=== PATIENT | male | born 1950 | race Caucasian/White ===

== ENCOUNTER → 2017-02-24 | Outpatient (CLI) | payer MEDICARE, OTHER ==
[~2017-02-24] MED LIST: AMIT50TA3 PO; AMLO5TAB66 PO; ASCO100T10 PO; COLC0.6T54 PO; DICL100G5 TOP; DOXY100T2 PO; HYDR-2164 PO; HYDR1TAB82 PO; HYDR25TA85 PO; LIDOCAINE 1% (10mg/ml) 30ml SDV ONE; LISI-126 PO; MINO100T PO; MIRT15TA7 PO; MethylPREDNISolone ACETATE 80mg/1ml ONE; OMEP40CA11 PO; POTA20TA68 PO; PREN1TAB46 PO; SUCR1TAB PO; TADA20TA; VITA1CAP29 PO; [UNRECOGNIZED DRUG - CODE] PO
--- NOTE | 2017-02-24 08:14 | PDPROCED ---
Procedure DATE OF PROCEDURE 02/24/17 PREPROCEDURE DIAGNOSIS Bilateral hip pain. POSTPROCEDURE DIAGNOSIS Bilateral hip pain. PROCEDURE Intraarticular injection of right and left hips with Depo-Medrol. SURGEON Tanika Culver MD COMPLICATIONS None. ANESTHESIA Local. INDICATIONS Please see office notes. DESCRIPTION OF PROCEDURE The patient and the right hip were identified. The patient was placed on the fluoroscopy table and the right anterior hip was prepped and draped in normal sterile fashion. Ethyl Chloride spray was used to anesthetize the skin and a 25 gauge needle was used to inject 1% lidocaine at the anterior lateral thigh. This needle was then removed and a spinal needle was introduced into the same path and again lidocaine was used to anesthetize the path down to the hip joint. Confirmation that the needle was within the capsule of the hip joint was done by placing 1 cc of Omnipaque dye under fluoroscopic imaging until the capsule lines appeared on fluoroscopy confirming that the needle was intraarticular. 160 mg of Depo-Medrol was then injected in to the hip joint. The needle was removed. The site was then cleaned with alcohol and a Band-aid was placed. The same procedure was then repeated on the left side. The patient tolerated the procedure well. FOLLOW UP 3-4 weeks or sooner with any problems or concerns. JEREMIAS CULVER MD Feb 24, 2017 08:14
== END ==
LOC: CATH.INJ 07:38
PROVIDERS: ATTEND Orthopaedic Surgery
DX: M16.0 Bilateral primary osteoarthritis of hip (principal)
CPT/HCPCS: 20610; 77002; J1040; Q9967

== ENCOUNTER → 2017-03-03 | Outpatient (CLI) | payer MEDICARE, OTHER ==
[~2017-03-03] MED LIST changes: +GADOBUTROL 10mMol/10ml INJECTION IV ONE; -LIDOCAINE 1% (10mg/ml) 30ml SDV ONE; -MethylPREDNISolone ACETATE 80mg/1ml ONE; +SALINE FLUSH 10ml SYRINGE ONE
== END ==
LOC: IMA 08:21
PROVIDERS: ATTEND Family Medicine Sports Medicine
DX: Z53.8 Procedure and treatment not carried out for other reasons (principal)

== ENCOUNTER → 2017-03-03 | Outpatient (CLI) | payer MEDICARE, OTHER ==
[~2017-03-03] MED LIST changes: -GADOBUTROL 10mMol/10ml INJECTION IV ONE; +IOHEXOL 300 MG/ML 100ml INJECTION ONE; +NORMAL SALINE 100 ML ONE
--- NOTE | 2017-03-03 18:20 | DI ---
Indication: ITS.REASON: C34.11 RIGHT LUNG CA PROCEDURE: CT CHEST/ABD/PELVIS WITH CONTRAST. Comparison: None Technique: Axial CT images were performed through the chest, abdomen and pelvis after the administration of intravenous contrast. Coronal and sagittal two-dimensional reformats. Automated Exposure Control and Iterative Reconstruction dose reducing techniques were utilized. CT CHEST FINDINGS: Cardiovascular: The heart is mild to moderately enlarged. There is mild calcific atherosclerotic disease of the thoracic aorta and coronary arteries. Lymph nodes: There are no enlarged axillary, hilar, or mediastinal lymph nodes. Lungs: Stable right posterior perihilar postsurgically/post therapeutic related fibrosis/scarring without evidence for developing mass. The lungs are otherwise clear. Resolution of trace right pleural effusion. There is no pneumothorax. Bones: No suspicious or destructive osseous lesions. Mild spondylosis of the thoracic spine. IMPRESSION: Post surgical related scarring/fibrosis about the right perihilar region without evidence for developing pulmonary mass or thoracic tom metastases. CT ABDOMEN AND PELVIS FINDINGS: CT ABDOMEN LIVER: There is diffuse fatty infiltration of the liver SPLEEN: Unremarkable. GALLBLADDER: Unremarkable. PANCREAS: Unremarkable. ADRENAL GLANDS: Unremarkable. KIDNEYS: Unremarkable. AORTA: Mild calcific atherosclerotic disease. LYMPH NODES: Unremarkable. STOMACH BOWEL LOOPS: There is moderate constipation. No evidence for bowel obstruction. PERITONEAL CAVITY: There is no abdominal or pelvic inflammatory mass or ascites. CT PELVIS URINARY BLADDER: Unremarkable. PELVIC VISCERA: Postsurgical changes of prostatectomy. No evidence for residual recurrent malignancy. OSSEOUS STRUCTURES: Postsurgical changes in the lumbar spine with laminectomy defects. No suspicious or destructive osseous lesions are demonstrated. IMPRESSION: 1. Postsurgical changes of prostatectomy without evidence for residual or recurrent mass. No evidence for thoracic, abdominal, or pelvic tom metastases. No evidence for pulmonary or abdominal/pelvic visceral metastases. 2. Resolution of small right pleural effusion. Unchanged right perihilar and apical scarring/atelectasis without evidence for developing pulmonary mass. .
== END ==
LOC: IMA 08:24
PROVIDERS: ATTEND Internal Medicine Medical Oncology
DX: C34.11 Malignant neoplasm of upper lobe, right bronchus or lung (principal); I25.10 Atherosclerotic heart disease of native coronary artery without angina pectoris; I70.0 Atherosclerosis of aorta; J98.11 Atelectasis; M47.814 Spondylosis without myelopathy or radiculopathy, thoracic region; Z98.890 Other specified postprocedural states; Z90.79 Acquired absence of other genital organ(s)
CPT/HCPCS: 71260; 74177; J7050; Q9967

== ENCOUNTER → 2017-03-12 | Outpatient (CLI) | payer MEDICARE, OTHER ==
[~2017-03-12] MED LIST changes: +IOHEXOL 180 MG/ML 20ml INJECTION ONE; -IOHEXOL 300 MG/ML 100ml INJECTION ONE; +LIDOCAINE 1% (10mg/ml) 5ml VIAL ONE; +MethylPREDNISolone ACETATE 40mg/1ml ONE; -NORMAL SALINE 100 ML ONE; -SALINE FLUSH 10ml SYRINGE ONE
--- NOTE | 2017-03-12 14:58 | DI ---
Indication:ITS.REASON: M54.16 RADICULOPATHY; M48.06 STENOSIS Procedure:EPIDURAL INJ.SPINE W FLUO CATH LUMBAR EPIDURAL INJECTION: The patient has low back and radicular pain. The patient has not had any previous epidurals. The details of the procedure, including the benefits, risks, and alternatives were explained to the patient. All of their questions were answered. They stated that they understood and wished to proceed. Informed consent was then obtained. A pre-procedural timeout was performed to confirm the correct patient and procedure. Utilizing aseptic technique, local lidocaine anesthetic, and fluoroscopic guidance throughout, a 22-gauge spinal needle was directed into the lumbar epidural space via a sacrococcygeal approach. Contrast was injected to assure proper positioning of the needle tip. A fluoroscopic image was then taken and archived. Subsequently, 120 mg Depo-Medrol was injected into the epidural space. The patient tolerated the procedure well. IMPRESSION: Successful lumbar epidural steroid injection. Fluoroscopy dose: 32.58 mGy (Cumulative air kerma) Willy Marquez RPA/STACIA performed this under my personal supervision. .
== END ==
LOC: IMA 13:55
PROVIDERS: ATTEND Family Medicine Sports Medicine
DX: M54.16 Radiculopathy, lumbar region (principal); M48.06 Spinal stenosis, lumbar region
CPT/HCPCS: 62323; J1030; Q9965

== ENCOUNTER → 2017-04-02 | Outpatient (CLI) | payer MEDICARE, OTHER ==
--- NOTE | 2017-04-02 10:57 | DI ---
Indication:ITS.REASON: M54.16 RADICULOPATHY, LUMBAR REGION; M48.06 Procedure:EPIDURAL INJ.SPINE W FLUO CATH LUMBAR EPIDURAL INJECTION: The patient has low back and radicular pain. The previous epidural did not provide significant relief for the patient. The details of the procedure, including the benefits, risks, and alternatives were explained to the patient. All of their questions were answered. They stated that they understood and wished to proceed. Informed consent was then obtained. A pre-procedural timeout was performed to confirm the correct patient and procedure. Utilizing aseptic technique, local lidocaine anesthetic, and fluoroscopic guidance throughout, a 22-gauge spinal needle was directed into the lumbar epidural space via a sacrococcygeal approach. Contrast was injected to assure proper positioning of the needle tip. A fluoroscopic image was then taken and archived. Subsequently, 120 mg Depo-Medrol was injected into the epidural space. The patient tolerated the procedure well. IMPRESSION: Successful lumbar epidural steroid injection. Fluoroscopy dose: 36.35 mGy (Cumulative air kerma) Willy Marquez RPA/STACIA performed this under my personal supervision. .
== END ==
LOC: IMA 08:55
PROVIDERS: ATTEND Family Medicine Sports Medicine
DX: M54.16 Radiculopathy, lumbar region (principal); M48.06 Spinal stenosis, lumbar region
CPT/HCPCS: 62323; J1030; Q9965

== ENCOUNTER 2017-06-05 13:57 | Inpatient (IN) ==
--- NOTE | 2017-06-05 14:46 | Emergency Department Report ---
Extremity Problem HPI - General Chief complaint: Extremity Problem,Nontraumatic Stated complaint: knee pain Time Seen by Provider: 06/05/17 14:00 Source: patient, old records reviewed Mode of arrival: wheelchair Limitations: no limitations - History of Present Illness HPI Narrative: 67yo man presents to the ER for continued knee pain. Pts left knee is red, swollen, hot, and incredibly TTP and tender with any motion. Pt was seen in this ER two days ago for bursitis; fluid was tapped and cultured at that time. In the interim, cultx has grown out Staph A. No sensitivities available at this time; blood culx were neg x2. MD Complaint: joint swelling, joint paint Onset (ago): day(s) Consistency: constant Location: left, knee Severity scale (1-10): 8 Quality: stabbing, aching Relieving factors: nothing Exacerbating factors: range of motion, weight bearing, walking, palpation Associated symptoms: denies other symptoms - Related Data Home Medications Medication Instructions Recorded Confirmed Lisinopril 20 mg PO HS #0 09/12/10 06/05/17 Potassium Chloride [Klor-Con M20] 40 meq PO HS #0 09/12/10 06/05/17 Ascorbic Acid [Vitamin C] 100 mg PO HS #0 tab 05/03/14 06/05/17 Colchicine [Colcrys] 0.6 mg PO HS #0 tab 05/03/14 06/05/17 Amlodipine Besylate 5 mg PO HS #0 tab 05/04/14 06/05/17 HydrOXYzine [Atarax] 25 mg PO TID PRN #0 tab 09/01/14 06/05/17 Acetaminophen [Acetaminophen Extra 1,000 mg PO Q6H PRN 06/03/17 06/05/17 Strength] Albuterol Inhaler [Ventolin Hfa] 1 - 2 puff ORAL INH Q3-4HR PRN 06/03/17 Albuterol Sulfate 2.5 mg AEROSOL QID 06/03/17 06/05/17 Calcium Carbonate/Vitamin D3 1 tab PO HS 06/03/17 06/05/17 [Calcium 600-Vit D3 200 Tablet] Cyanocobalamin (Vitamin B-12) 1,000 mcg PO HS 06/03/17 06/05/17 [Vitamin B-12] Cyclobenzaprine [Flexeril] 5 mg PO TID PRN 06/03/17 06/05/17 Fexofenadine [Gricelda] 180 mg PO HS 06/03/17 06/05/17 Fluocinonide 0.05% Cream [Lidex 1 applic TOP DAILY PRN 06/03/17 06/05/17 0.05% Cream] Glucosa Sapp 2Kcl/Chondroitin Sapp 1 tab PO HS 06/03/17 06/05/17 [Glucosamine Chondroitin Caplet] Hydrocodone/APAP 7.5/325 [[place] 1 tab PO Q4H PRN 06/03/17 06/05/17 7.5/325] Iron Ps Cmplx/Vit B12/FA 2 cap PO HS 06/03/17 06/05/17 [Poly-Iron 150 Forte Capsule] Ketoconazole Cream [Nizoral 2% 1 applic TOP BID 06/03/17 06/05/17 Cream] Mometasone 0.1% Cream [Elocon 0.1% 1 applic TP BID 06/03/17 06/05/17 Cream] Multivitamin with Minerals [Men's 1 tab PO HS 06/03/17 06/05/17 One Daily] Omeprazole [Prilosec] 20 mg PO HS 06/03/17 06/05/17 Previous Rx's Medication Instructions Recorded Clindamycin [Cleocin] 300 mg PO QID #30 capsule 06/09/17 Allergies Allergy/AdvReac Type Severity Reaction Status Date / Time No Known Drug Allergies Allergy Unknown Verified 06/05/17 14:24 Review of Systems All systems: reviewed and negative except as stated Musculoskeletal: Reports: as per HPI, joint swelling PFSH Patient Stated Medical History Cerebrovascular Accident No Dental Problems Yes: UPPER DENTURES Congestive Heart Failure No Coronary Artery Disease No Heart Murmur No Hypertension Yes Sleep Apnea No Other Respiratory Yes: Lung Ca- 3 liters at all times at home Gastroesophageal Reflux Yes: well controlled Disease Gastrointestinal Bleeding Yes Other GI Yes: crohns Anemia Yes Osteoarthritis Yes Other Musculoskeletal Yes: osteoarthritis 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 Shingles Yes Anesthesia Reactions No Blood Transfusions Yes Chemotherapy Yes: 2016 Other Yes: radiation in 1999, 2015 Other Behavioral Health Yes: took many sleeping pill 5yrs ago - Social History Smoking status: Former smoker Physical Exam - Limitations Limitations: no limitations - General General appearance: alert, in no apparent distress - Normal Exams: Head:: Normocephalic without trauma Eyes:: Pupils are PERRLA w/ EOMI, No scleral icterus, irritation, or foreign bodies noted ENMT:: No facial trauma, nasal exudates, pharyngeal erythema, or exudates are noted Neck:: Full range of motion, without adenopathy, JVD, bruits or thyromegaly Chest/Respirations:: Clear all trammell, with good airflow, and symmetry bilaterally Cardiovascular:: Regular rate and rhythm, without murmur or gallop, Pulses 2+ all extremities, capillary refill, <2 seconds all extremities Abdomen:: Bowel sounds positive, soft, non-tender, non-distended, no hepatosplenomegaly, masses or bruits noted Lymphatic:: No lymphadenopathy, or lymphedema noted Integumentary:: No rashes, hives, or bruising noted, hair and nails, without abnormality Neurological:: Patient is alert, and oriented, cranial nerves, motor/sensory/ cerebellar, exams w/o gross deficits, to observation Psychiatric:: Patient exhibits, appropriate attention, emotion and affect - Expanded Lower Extremity Exam Knee exam: Present: tenderness, swelling, erythema, effusion, knee extension intact. Absent: normal inspection, full ROM, abrasion, laceration, ecchymosis, deformity, crepitus, dislocation, anterior drawer sign, posterior draw sign, pain with valgus, laxity with valgus, pain with varus, laxity with varus Course - Consultations Consultation #1: Ortho: Very suspicious for septic bursa. Recommend admission, IV atbx, and would recommend consult for surgical I&D and washout. Time: 14:46 Consultation #2: Dr. Vides: Will admit to facility for overnight obs; vanc 1g q12hr; order f/u lactate. Time: 16:06 Vital Signs Temperature 98.4 F 06/05/17 14:08 Pulse Rate 98 06/05/17 14:08 Respiratory Rate 20 06/05/17 14:08 Blood Pressure 150/72 H 06/05/17 14:08 Pulse Oximetry 95 06/05/17 14:08 Temperature 97 F 06/09/17 11:00 Pulse Rate 82 06/09/17 11:00 Respiratory Rate 20 06/09/17 11:00 Blood Pressure 142/69 H 06/09/17 11:00 Pulse Oximetry 96 06/09/17 11:00 Extremity Problem, Nontraumati - Differential Diagnosis Likely: cellulitis (Septic joint; bursitis; abscess) - Medical Records Attestation: I reviewed the patient's medical records. - Lab Data Attestation: I reviewed the patient's lab results. Result diagrams: 06/09/17 04:20 06/09/17 04:20 Lab Results 06/05/17 06/05/17 06/05/17 Range/Units 15:31 15:31 15:31 WBC 6.8 (4.5-11.0) T/MM3 RBC 3.59 L (4.50-5.90) M/MM3 Hgb 10.3 L (13.5-17.5) GM/DL Hct 31.5 L (41-53) % MCV 87.7 (80-100) UM3 MCH 28.7 (26-34) UUG MCHC 32.7 (31-37) GM/DL RDW Std Deviation 57.1 H (36.9-50.2) FL Plt Count 197 (130-400) T/MM3 MPV 8.7 L (9.4-12.4) UM3 Immature Gran % (Auto) 0.6 H (0.0-0.5) % Neut % (Auto) 80.0 H (33-66) % Lymph % (Auto) 9.5 L (23-45) % Hale % (Auto) 7.8 (0-9.0) % Eos % (Auto) 1.8 (0-4) % Baso % (Auto) 0.3 (0-2) % Neut # 5.5 (1.8-7.7) T/MM3 Lymph # 0.7 L (1-4.8) T/MM3 Hale # 0.5 (0-0.8) T/MM3 Eos # 0.1 (0-0.5) T/MM3 Baso # 0.0 (0-0.2) T/MM3 Abs Immat Gran (auto) 0.04 H (0.00-0.03) T/MM3 Turbidity < 20 (0-20) Sodium 138 (134-144) MEQ/L Potassium 4.4 (3.6-5) MEQ/L Chloride 102 (98-107) MEQ/L Carbon Dioxide 23 (22-30) MEQ/L Anion Gap 13 (5-15) MEQ/L BUN 14.0 (9-20) MG/DL Creatinine 0.9 D (0.8-1.5) MG/DL GFR Calculation 84 BUN/Creatinine Ratio 16 (6-26) RATIO Glucose 122 H (75-110) MG/DL Calculated Osmolality 268 (261-280) MOSM/KG Calcium 9.6 (8.4-10.2) MG/DL Icterus Index < 2 (0-7) Plasma Lactate 2.0 (0.6-2.2) MMOL/L Procalcitonin < 0.05 NG/ML Specimen Hemolysis < 15 (0-25) Ur Collection Type Urine Color (YELLOW) Urine Clarity Urine pH (5.0-8.0) Ur Specific [place] (1.015-1.025) Urine Protein (NEGATIVE) Urine Glucose (UA) (NEGATIVE) Urine Ketones (NEGATIVE) Urine Occult Blood (NEGATIVE) Urine Nitrate (NEGATIVE) Urine Bilirubin (NEGATIVE) Urine Urobilinogen (NORMAL) EU/DL Ur Leukocyte Esterase (NEGATIVE) Urinalysis Comment 06/05/17 06/05/17 Range/Units 19:57 21:04 WBC (4.5-11.0) T/MM3 RBC (4.50-5.90) M/MM3 Hgb (13.5-17.5) GM/DL Hct (41-53) % MCV (80-100) UM3 MCH (26-34) UUG MCHC (31-37) GM/DL RDW Std Deviation (36.9-50.2) FL Plt Count (130-400) T/MM3 MPV (9.4-12.4) UM3 Immature Gran % (Auto) (0.0-0.5) % Neut % (Auto) (33-66) % Lymph % (Auto) (23-45) % Hale % (Auto) (0-9.0) % Eos % (Auto) (0-4) % Baso % (Auto) (0-2) % Neut # (1.8-7.7) T/MM3 Lymph # (1-4.8) T/MM3 Hale # (0-0.8) T/MM3 Eos # (0-0.5) T/MM3 Baso # (0-0.2) T/MM3 Abs Immat Gran (auto) (0.00-0.03) T/MM3 Turbidity (0-20) Sodium (134-144) MEQ/L Potassium (3.6-5) MEQ/L Chloride (98-107) MEQ/L Carbon Dioxide (22-30) MEQ/L Anion Gap (5-15) MEQ/L BUN (9-20) MG/DL Creatinine (0.8-1.5) MG/DL GFR Calculation BUN/Creatinine Ratio (6-26) RATIO Glucose (75-110) MG/DL Calculated Osmolality (261-280) MOSM/KG Calcium (8.4-10.2) MG/DL Icterus Index (0-7) Plasma Lactate 1.1 (0.6-2.2) MMOL/L Procalcitonin NG/ML Specimen Hemolysis (0-25) Ur Collection Type Urine, clean catch Urine Color Yellow (YELLOW) Urine Clarity Clear Urine pH 6.0 (5.0-8.0) Ur Specific [place] >=1.030 H (1.015-1.025) Urine Protein Negative (NEGATIVE) Urine Glucose (UA) Negative (NEGATIVE) Urine Ketones Negative (NEGATIVE) Urine Occult Blood Negative (NEGATIVE) Urine Nitrate Negative (NEGATIVE) Urine Bilirubin Negative (NEGATIVE) Urine Urobilinogen 0.2 (NORMAL) EU/DL Ur Leukocyte Esterase Negative (NEGATIVE) Urinalysis Comment Microscopic not ind. - EKG Data EKG #1 EKG attestation: Yes: I reviewed and interpreted this EKG. EKG shows normal: sinus rhythm, axis, intervals, QRS complexes, ST-T waves Rate: normal Disposition Clinical Impression: Septic prepatellar bursitis of left knee Disposition: 02 To [facility] Condition: Improved Time of Disposition: 16:17 - Seen By: physician
[2017-06-05] MEDS ORDERED: SALINE FLUSH 10ml SYRINGE IVF PRN (15:17)
--- NOTE | 2017-06-05 15:51 | Orthopedic Consult Note ---
Orthopedic Consultation HPI - Consultation Info Consult Date: 06/05/17 Consult Reason: other (left knee septic prepatellar bursitis) - HPI Elements left anterior knee Pain: sharp Onset: sudden Severity: severe Duration: 12-24 hours How Often Does Pain Occur: constant Previous Surgery: No Previous Injury: No Aggrevated by: walking Associated Symptoms: swelling HPI Comment: Mr. Yung pain and swelling in the knee have increased since his visit couple days ago in the emergency room despite being on oral antibiotics. 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 - Social History Smoking status: Former smoker Medications Home Medications Medication Instructions Recorded Confirmed Type Lisinopril 20 mg PO HS #0 09/12/10 06/03/17 History Potassium Chloride [Klor-Con M20] 40 meq PO HS #0 09/12/10 06/03/17 History Ascorbic Acid [Vitamin C] 100 mg PO HS #0 tab 05/03/14 06/03/17 History Colchicine [Colcrys] 0.6 mg PO HS #0 tab 05/03/14 06/03/17 History Amlodipine Besylate 5 mg PO HS #0 tab 05/04/14 06/03/17 History HydrOXYzine [Atarax] 25 mg PO TID PRN #0 tab 09/01/14 06/03/17 History Acetaminophen [Acetaminophen Extra 1,000 mg PO Q6H PRN 06/03/17 06/03/17 History Strength] Albuterol Inhaler [Ventolin Hfa] 1 - 2 puff ORAL INH Q3-4HR PRN 06/03/17 History Albuterol Sulfate 2.5 mg AEROSOL QID 06/03/17 06/03/17 History Calcium Carbonate/Vitamin D3 1 tab PO HS 06/03/17 06/03/17 History [Calcium 600-Vit D3 200 Tablet] Cyanocobalamin (Vitamin B-12) 1,000 mcg PO HS 06/03/17 06/03/17 History [Vitamin B-12] Cyclobenzaprine [Flexeril] 5 mg PO TID PRN 06/03/17 06/03/17 History Fexofenadine [Gricelda] 180 mg PO HS 06/03/17 06/03/17 History Fluocinonide 0.05% Cream [Lidex 1 applic TOP DAILY PRN 06/03/17 06/03/17 History 0.05% Cream] Glucosa Sapp 2Kcl/Chondroitin Sapp 1 tab PO HS 06/03/17 06/03/17 History [Glucosamine Chondroitin Caplet] Hydrocodone/APAP 7.5/325 [[place] 1 tab PO Q4H PRN 06/03/17 06/03/17 History 7.5/325] Iron Ps Cmplx/Vit B12/FA 2 cap PO HS 06/03/17 06/03/17 History [Poly-Iron 150 Forte Capsule] Ketoconazole Cream [Nizoral 2% 1 applic TOP BID 06/03/17 06/03/17 History Cream] Mometasone 0.1% Cream [Elocon 0.1% 1 applic TP BID 06/03/17 06/03/17 History Cream] Multivitamin with Minerals [Men's 1 tab PO HS 06/03/17 06/03/17 History One Daily] Omeprazole [Prilosec] 20 mg PO HS 06/03/17 06/03/17 History Ondansetron [Ondansetron Odt] 8 mg PO Q8H PRN 06/03/17 06/03/17 History Allergies Allergy/AdvReac Type Severity Reaction Status Date / Time No Known Drug Allergies Allergy Unknown Verified 06/05/17 14:24 Orthopedic Exam Vital signs: Temperature 98.4 F 06/05/17 14:08 Pulse Rate 98 06/05/17 14:08 Respiratory Rate 20 06/05/17 14:08 Blood Pressure 150/72 H 06/05/17 14:08 Pulse Oximetry 95 06/05/17 14:08 Oxygen Delivery Method Room Air - Constitutional General Appearance: Present: no acute distress, well developed, well nourished - Respiratory Exam Present: non-labored - Cardiovascular Exam Present: pedal pulses intact - Extremities Exam Comments: Erythema over the anterior left knee. The prepatellar bursa is fluctuant. It is tender to palpation. The remainder of his leg exam is within normal limits. There is no knee effusion calf and thigh are soft and nontender. - Integumentary Exam Present: pink, warm, dry - Neurological Exam Present: intact to light touch, no deficits - Psychiatric Exam Present: alert, normal affect - Labs Result Diagrams: 06/05/17 15:31 06/05/17 15:31 Abnormal lab results 06/05/17 Range/Units 15:31 RBC 3.59 L (4.50-5.90) M/MM3 Hgb 10.3 L (13.5-17.5) GM/DL Hct 31.5 L (41-53) % RDW Std Deviation 57.1 H (36.9-50.2) FL MPV 8.7 L (9.4-12.4) UM3 Immature Gran % (Auto) 0.6 H (0.0-0.5) % Neut % (Auto) 80.0 H (33-66) % Lymph % (Auto) 9.5 L (23-45) % Lymph # 0.7 L (1-4.8) T/MM3 Abs Immat Gran (auto) 0.04 H (0.00-0.03) T/MM3 H & H 06/05/17 Range/Units 15:31 Hgb 10.3 L (13.5-17.5) GM/DL Hct 31.5 L (41-53) % Impression and Recommendation (1) Prepatellar bursitis, left knee Current visit: No Status: Acute Recommend IV antibiotics and observation in the hospital for possible incision and drainage in the operating room tomorrow. He is failed outpatient treatment with antibiotics. Hospital Course Summary Disclaimer: The visit summary below is not to be considered part of the above Progress Note.
[2017-06-05] MEDS ORDERED: VANCOMYCIN 1,500 MG in NS 250ml 500 ML IV SCH (16:00)
[2017-06-05 17:01] VITALS: BMI 29.5
--- NOTE | 2017-06-05 17:09 | Pharmacy Consult-Antibiotics ---
Pharmacy Consult-Vancomycin - Laboratory Information WBC 6.8 T/MM3 (4.5-11.0) 06/05/17 15:31 BUN 14.0 MG/DL (9-20) 06/05/17 15:31 Creatinine 0.9 MG/DL (0.8-1.5) D 06/05/17 15:31 Procalcitonin < 0.05 NG/ML 06/05/17 15:31 - Consult Information Consult noted for vancomycin therapy on Mr Yates, who is 6'2" tall and weighs 103.4kg. He has septic bursitis. Will start with vancomycin 1500mg IV q12h and monitor daily. Thank you.
[2017-06-05] MEDS: NS 1,000 ML IV SCH (18:10)
[2017-06-05] MEDS: RIFAMPIN 300 MG CAPSULE PO SCH (18:28)
[2017-06-06] MEDS: NS 1,000 ML IV SCH ×4 (04:08→23:20)
[2017-06-06] MEDS ORDERED: ACETAMINOPHEN IV 1,000 MG/100 ML VIAL IV ONE (08:56)
--- NOTE | 2017-06-06 09:05 | Anesthesia Preoperative Report ---
Anesthesia Preoperative Record - Date and Time Date: 06/06/17 Preoperative Diagnosis: Septic Bursitis Proposed Procedure: left knee I&D NPO Since Date: 06/05/17 NPO Since Time: 23:00 Allergies/Adverse Reactions: Allergies Allergy/AdvReac Type Severity Reaction Status Date / Time No Known Drug Allergies Allergy Unknown Verified 06/05/17 14:24 - Vital Signs Vital Signs: Temperature 98.3 F 06/06/17 07:43 Pulse Rate 74 06/06/17 07:44 Respiratory Rate 18 06/06/17 07:43 Blood Pressure 154/70 H 06/06/17 07:43 Pulse Oximetry 100 06/06/17 07:43 Oxygen Delivery Method Nasal Cannula Oxygen Flow Rate 3 Height and Weight: Height 6 ft 2 in Weight 103.7 kg Body Mass Index 29.5 - Medications Inpatient Medications: Current Medications Acetaminophen/Hydrocodone Bitart ([place] 7.5/325) 1 tab PO Q4H PRN PRN Reason: Pain Doxycycline Hyclate (Vibramycin) 100 mg PO BIDBS [facility] Last Admin: 06/06/17 07:27 Dose: 100 mg Vancomycin HCl 1,500 mg/ (Sodium Chloride) 500 mls @ 250 mls/hr IV Q12H TC Last Infusion: 06/06/17 06:08 Dose: Infused Sodium Chloride (Normal Saline) 1,000 mls @ 100 mls/hr IV .Q10H [facility] Last Infusion: 06/06/17 06:08 Dose: 100 mls/hr Acetaminophen (Ofirmev) 1,000 mg in 100 mls @ 400 mls/hr IV O ONE Stop: 06/06/17 09:10 Last Admin: 06/06/17 09:00 Dose: 400 mls/hr Rifampin (Rimactane) 300 mg PO DAILY TC Last Admin: 06/05/17 18:28 Dose: 300 mg Sodium Chloride (Iv Flush) 10 - 80 ml IVF PRN PRN PRN Reason: Flushing Last Admin: 06/05/17 15:52 Dose: 10 ml Home Medications: Home Medications Medication Instructions Recorded Confirmed Type Lisinopril 20 mg PO HS #0 09/12/10 06/05/17 History Potassium Chloride [Klor-Con M20] 40 meq PO HS #0 09/12/10 06/05/17 History Ascorbic Acid [Vitamin C] 100 mg PO HS #0 tab 05/03/14 06/05/17 History Colchicine [Colcrys] 0.6 mg PO HS #0 tab 05/03/14 06/05/17 History Amlodipine Besylate 5 mg PO HS #0 tab 05/04/14 06/05/17 History HydrOXYzine [Atarax] 25 mg PO TID PRN #0 tab 09/01/14 06/05/17 History Acetaminophen [Acetaminophen Extra 1,000 mg PO Q6H PRN 06/03/17 06/05/17 History Strength] Albuterol Inhaler [Ventolin Hfa] 1 - 2 puff ORAL INH Q3-4HR PRN 06/03/17 History Albuterol Sulfate 2.5 mg AEROSOL QID 06/03/17 06/05/17 History Calcium Carbonate/Vitamin D3 1 tab PO HS 06/03/17 06/05/17 History [Calcium 600-Vit D3 200 Tablet] Cyanocobalamin (Vitamin B-12) 1,000 mcg PO HS 06/03/17 06/05/17 History [Vitamin B-12] Cyclobenzaprine [Flexeril] 5 mg PO TID PRN 06/03/17 06/05/17 History Fexofenadine [Gricelda] 180 mg PO HS 06/03/17 06/05/17 History Fluocinonide 0.05% Cream [Lidex 1 applic TOP DAILY PRN 06/03/17 06/05/17 History 0.05% Cream] Glucosa Sapp 2Kcl/Chondroitin Sapp 1 tab PO HS 06/03/17 06/05/17 History [Glucosamine Chondroitin Caplet] Hydrocodone/APAP 7.5/325 [[place] 1 tab PO Q4H PRN 06/03/17 06/05/17 History 7.5/325] Iron Ps Cmplx/Vit B12/FA 2 cap PO HS 06/03/17 06/05/17 History [Poly-Iron 150 Forte Capsule] Ketoconazole Cream [Nizoral 2% 1 applic TOP BID 06/03/17 06/05/17 History Cream] Mometasone 0.1% Cream [Elocon 0.1% 1 applic TP BID 06/03/17 06/05/17 History Cream] Multivitamin with Minerals [Men's 1 tab PO HS 06/03/17 06/05/17 History One Daily] Omeprazole [Prilosec] 20 mg PO HS 06/03/17 06/05/17 History Is Patient on Beta Bee?: No - Medical History Respiratory: Reports: Other (Lung Ca- 3 liters at all times at home) DENIES: Sleep Apnea Cardiovascular: Reports: Hypertension DENIES: Abnormal EKG, Congestive Heart Failure, Coronary Artery Disease, Heart Murmur Gastrointestional: Reports: Gastroesophageal Reflux Disease (well controlled), Other (crohns) Neuro/Musculoskeletal: Reports: Other (osteoarthritis) Denies: Cerebrovascular Accident Other History: DENIES: Anesthesia Reactions - Surgical History Respiratory Surgery/Treatments: Reports: Oxygen Administration (O2 3-4L AT HOME) Surgery/Treatment: REPORT: Prostatectomy, Other (PROSTATE CA) Musculoskeletal Surgery/Tx: Reports: Other (RIGHT KNEE DRAIN, BACK SURGERY) Anesthesia Reactions: None Hx Family Anesthesia Reaction: No History of Motion Sickness: No - Social History Smoking Status: Former smoker Substance Use Type: does not use - Pertinent Findings Laboratory: Urine 06/05/17 Range/Units 21:04 Urine Color Yellow (YELLOW) Urine Clarity Clear Urine pH 6.0 (5.0-8.0) Ur Specific [place] >=1.030 H (1.015-1.025) Urine Protein Negative (NEGATIVE) Urine Glucose (UA) Negative (NEGATIVE) EKG Rhythm: Normal Sinus Rhythm - Physical Exam Respiratory Exam: Present: lungs clear, bilateral breath sounds equal Cardiovascular Exam: Present: regular rate and rhythm - Airway Assessment Mallampati Score: II TMD: 3 Fingerbreadths Neck Extension: good Teeth: upper dentures (out preop- left in room) Overall Assessment: may be difficult mask vent, may be difficult intubation - ASA ASA Score: 3 - Plan Anesthesia: General TIVA - Discussion Discussion: Discussed risks/options/alternatives of anesthesia and questions answered. Patient consents. Nursing pain assessment noted. Attestation Statement: Prior to the delivery of any anesthetic medication, I examined the patient, developed the plan, obtained the patient's consent and discussed the risk and benefits of the procedure with the patient/guardian. - Additional Information Seen by Anesthesia: Yes
[2017-06-06] MEDS ORDERED: KETAMINE 500 MG/10 ML INJECTION ONE (09:11)
[2017-06-06] MEDS ORDERED: FentaNYL 100 MCG/2 ML INJECTION ONE (09:11)
[2017-06-06] MEDS ORDERED: MIDAZOLAM 2mg/2ml INJECTION ONE (09:11)
[2017-06-06] MEDS ORDERED: PROPOFOL 500 MG/50 ML VIAL IV ONE (09:14)
--- NOTE | 2017-06-06 09:50 | Operative Note ---
- Procedure Date of Admission: 06/06/17 Side: left Preoperative Diagnosis: other (left knee septic prepatellar bursitis) Postoperative Diagnosis: Same as preoperative diagnosis. Operation: other (incision and drainage and debridement of left knee prepatellar bursitis) Surgeon: Tanika Culver MD Pet Training Instructor: None Complications: None. Anesthesia: General TIVA Estimated Blood Loss: See Anesthesia Record. Fluids: Please see Anesthesia Record. Description of Procedure: Mr. Strickland and his left knee were identified and marked in the preoperative holding area. He is brought back to the operating suite and placed supine on the operating table. He is in place under general anesthesia. The left lower extremity was prepped and draped in normal sterile fashion. Timeout was performed. The patient is on scheduled antibiotics. I began by making 2 incisions one medial and one lateral over the prepatellar bursa each about a centimeter in length sharply. With each incision I got a large expression of pus just material. I continue to get more pus out of both incisions with milking of the prepatellar bursa. I then used a curet to debride the bursal material from both incisions. I then irrigated from 1 incision out through the other with cystoscopy tubing using 3 L of normal saline. I then squirted 500 mL of Aricept solution through the bursa. I then placed a quarter- inch [place] drain from one incision to the other incision to the other and tied the ends together. A sterile dressing was then placed in the drapes were removed. He was allowed to awake from general anesthesia and then taken to the recovery room under the care of anesthesia he tolerated the procedure well and there were no complications.
--- NOTE | 2017-06-06 09:55 | Anesthesia Postoperative Note ---
- Date and Time Date: 06/06/17 Time: 09:55 - Status Patient Participated in Evaluation: Patient Participated in Person Vital Signs: Temperature 98.3 F 06/06/17 07:43 Pulse Rate 74 06/06/17 07:44 Respiratory Rate 18 06/06/17 07:43 Blood Pressure 154/70 H 06/06/17 07:43 Pulse Oximetry 100 06/06/17 07:43 Oxygen Delivery Method Nasal Cannula Oxygen Flow Rate 3 Respiratory Function: Airway Patent Cardiovascular Function: Regular Pulse Mental Status: Alert and Oriented Pain Intensity: 0 Hydration: IV Infusing Complications During Recover: None Apparent - Follow-Up Instructions Instructions: Per Surgeon
[2017-06-06] MEDS: HYDROMORPHONE 2 MG/ML INJECTION IVP PRN ×3 (10:03→10:24)
[2017-06-06] MEDS ORDERED: HYDROMORPHONE 2 MG/ML INJECTION IVP PRN (10:26)
[2017-06-06] MEDS: HYDROCODONE/APAP 7.5 MG/325 MG TABLET PO PRN (11:10)
[2017-06-06] MEDS: RIFAMPIN 300 MG CAPSULE PO SCH (11:12)
[2017-06-06] MEDS ORDERED: KETOROLAC 15 MG/ML INJECTION IM ONE (13:27)
[2017-06-06] MEDS ORDERED: KETOROLAC 15 MG/ML INJECTION IVP ONE (13:27)
[2017-06-06] MEDS ORDERED: NALOXEGOL 12.5 MG TABLET PO SCH (13:29)
--- NOTE | 2017-06-06 13:44 | Internal Med History&Physical ---
Internal Medicine HPI Chief complaint: Left knee pain History of present illness: Mr. Yates is a pleasant 67 yo white male who presented to ER with significant left knee pain and swelling with redness. He was seen and evaluated recently in the ER for the same complaint. While there, ortho tapped the knee for culture/ sensitivity. He is now in significant pain. He has had MRSA in the past and is currently being treated for lung cancer. Review of Systems - Constitutional Constitutional: Present: fatigue, lethargy. Absent: chills, fever(s), night sweats - Cardiovascular Cardiovascular: Absent: chest pain, palpitations - Respiratory Respiratory: Absent: cough, dyspnea - Gastrointestinal Gastrointestinal: Present: constipation. Absent: abdominal pain, dysphagia, hematemesis, hematochezia, melena, nausea, vomiting - Integumentary/Breasts Integumentary: Present: erythema, rash (on the chest, back and legs), swelling - Neurological Neurological: Present: abnormal gait (antalgic) - Psychiatric Psychiatric: Absent: anxiety, depression - Hematologic/Lymphatic Hematologic/Lymphatic: Present: easy bruising. Absent: lymphadenopathy - Allergic/Immunologic Allergic/Immunologic: Absent: tongue swelling, throat swelling PFSH Squamous cell carcinoma lung Metastatic prostate carcinoma Hypertension spongiotic dermatitis Anemia COPD chronic pain Surgical History: Back surgery 2004. Prostatectomy 2004 Family History: Mother--Hodgkin's lymphoma Father--DM2 - Social History Smoking status: Former smoker Substance use type: does not use Alcohol intake frequency: a few times a week Housing: house Household members: none Current occupational status: previously employed Does patient use chewing tobacco?: No Current residence: Apartment/Private Home Medications Home Medications Medication Instructions Recorded Confirmed Type Lisinopril 20 mg PO HS #0 09/12/10 06/05/17 History Potassium Chloride [Klor-Con M20] 40 meq PO HS #0 09/12/10 06/05/17 History Ascorbic Acid [Vitamin C] 100 mg PO HS #0 tab 05/03/14 06/05/17 History Colchicine [Colcrys] 0.6 mg PO HS #0 tab 05/03/14 06/05/17 History Amlodipine Besylate 5 mg PO HS #0 tab 05/04/14 06/05/17 History HydrOXYzine [Atarax] 25 mg PO TID PRN #0 tab 09/01/14 06/05/17 History Acetaminophen [Acetaminophen Extra 1,000 mg PO Q6H PRN 06/03/17 06/05/17 History Strength] Albuterol Inhaler [Ventolin Hfa] 1 - 2 puff ORAL INH Q3-4HR PRN 06/03/17 History Albuterol Sulfate 2.5 mg AEROSOL QID 06/03/17 06/05/17 History Calcium Carbonate/Vitamin D3 1 tab PO 06/03/17 06/05/17 History [Calcium 600-Vit D3 200 Tablet] Cyanocobalamin (Vitamin B-12) 1,000 mcg PO 06/03/17 06/05/17 History [Vitamin B-12] Cyclobenzaprine [Flexeril] 5 mg PO TID PRN 06/03/17 06/05/17 History Fexofenadine [Gricelda] 180 mg PO 06/03/17 06/05/17 History Fluocinonide 0.05% Cream [Lidex 1 applic TOP DAILY PRN 06/03/17 06/05/17 History 0.05% Cream] Glucosa Sapp 2Kcl/Chondroitin Sapp 1 tab PO 06/03/17 06/05/17 History [Glucosamine Chondroitin Caplet] Hydrocodone/APAP 7.5/325 [[place] 1 tab PO Q4H PRN 06/03/17 06/05/17 History 7.5/325] Iron Ps Cmplx/Vit B12/FA 2 cap PO 06/03/17 06/05/17 History [Poly-Iron 150 Forte Capsule] Ketoconazole Cream [Nizoral 2% 1 applic TOP BID 06/03/17 06/05/17 History Cream] Mometasone 0.1% Cream [Elocon 0.1% 1 applic TP BID 06/03/17 06/05/17 History Cream] Multivitamin with Minerals [Men's 1 tab PO 06/03/17 06/05/17 History One Daily] Omeprazole [Prilosec] 20 mg PO 06/03/17 06/05/17 History Allergies Allergy/AdvReac Type Severity Reaction Status Date / Time No Known Drug Allergies Allergy Unknown Verified 06/05/17 14:24 Exam Vital signs: Temperature 98.7 F 06/06/17 10:52 Pulse Rate 83 06/06/17 13:18 Respiratory Rate 18 06/06/17 10:50 Blood Pressure 146/70 H 06/06/17 13:18 Pulse Oximetry 97 06/06/17 13:18 Oxygen Delivery Method Nasal Cannula Oxygen Flow Rate 3 - Constitutional mild distress - Routine HEENT Exam Head: Present: normocephalic, atraumatic Eye: Present: EOMI, PERRL, conjunctivae pink. Absent: conjunctival icterus, scleral injection ENT: Present: mucous membranes moist, oropharynx clear, nares patent Nose: moist mucous membranes - Routine Neck Exam Present: supple, full ROM. Absent: carotid bruit, lymphadenopathy, thyromegaly , tenderness - Routine Chest/Breast/Axilla Exam Chest wall: Absent: tenderness Axillae: Absent: lymphadenopathy, erythema - Routine Respiratory Exam Absent: accessory muscle use, decreased breath sounds, rales, respiratory distress, rhonchi - Routine Cardiovascular Exam Present: RRR, no murmur. Absent: S3, S4 - Routine Abdominal Exam Present: distended. Absent: normoactive bowel sounds, rebound, guarding, rigid - Routine Extremities Exam Present: edema. Absent: cyanosis, clubbing - Routine Skin Exam Present: erythema, rash - Routine Neurological Exam Present: alert, oriented X3, CN II-XII intact. Absent: altered mental status Internal Medicine Results - Labs CBC & Chem 7: 06/05/17 15:31 06/05/17 15:31 Assessment and Plan (1) Constipation Current visit: Yes Status: Acute (2) Squamous cell carcinoma of lung Current visit: Yes Status: Acute (3) Prostate cancer metastatic to bone Current visit: Yes Status: Acute (4) Chronic pain due to neoplasm Current visit: Yes Status: Acute (5) Septic prepatellar bursitis of left knee Current visit: Yes Status: Acute Sepsis Assessment - Evaluation Sepsis screening result: No Definite Risk Possible source: skin/soft tissue SIRS Criteria: none
[2017-06-06] MEDS ORDERED: NALOXEGOL 12.5 MG TABLET PO ONE (14:00)
[2017-06-06] MEDS ORDERED: KETOROLAC 60 MG/2 ML INJECTION IM ONE (14:00)
[2017-06-06] MEDS ORDERED: ALBUTEROL 2.5mg/3ml (0.083%) NEB AEROSOL PRN (17:31)
[2017-06-06] MEDS ORDERED: HYDROXYZINE 25 MG PO PRN (17:31)
[2017-06-06] MEDS ORDERED: CYCLOBENZAPRINE 10 MG PO PRN (17:31)
[2017-06-06] MEDS ORDERED: HYDROCODONE/APAP 7.5 MG/325 MG TABLET PO PRN (17:31)
--- NOTE | 2017-06-06 17:44 | Internal Med Progress Note ---
Internal Medicine Subjective Patient seen and examined. He had I&D of his prepatellar bursitis infection this AM with Dr. Culver. He now has a drain from the surgical site. He is c/o significant pain--05/26. Toradol given with good result. Restarted home meds. He is c/o constipation...no BM for 3-4 days. He is tolerating his antibiotics well. Exam Vital Signs: Temperature 96.6 F L 06/06/17 16:53 Pulse Rate 73 06/06/17 16:53 Respiratory Rate 18 06/06/17 16:53 Blood Pressure 138/71 06/06/17 16:53 Pulse Oximetry 100 06/06/17 16:53 Oxygen Delivery Method Nasal Cannula Oxygen Flow Rate 3 Telemetry Rhythm: Sinus Rhythm Height: 6 ft 2 in Weight: 103.7 kg Body Mass Index: 29.5 - Constitutional Present: mild distress, cooperative. Absent: combative, agitated - Routine HEENT Exam Head: Present: normocephalic, atraumatic Eye: Present: EOMI, PERRL, conjunctivae pink. Absent: conjunctival icterus, scleral injection ENT: Present: mucous membranes moist, oropharynx clear, nares patent - Routine Neck Exam Present: supple, full ROM. Absent: JVD, carotid bruit, lymphadenopathy, thyromegaly, tenderness - Routine Chest/Breast/Axilla Exam Chest wall: Absent: tenderness Axillae: Absent: lymphadenopathy - Routine Respiratory Exam Present: distant breath sounds. Absent: accessory muscle use, dyspnea, rales, respiratory distress, rhonchi, stridor, wheezes - Routine Cardiovascular Exam Present: RRR. Absent: S3, S4 - Routine Abdominal Exam Present: soft, distended (mildly). Absent: normoactive bowel sounds, rebound, guarding, rigid - Routine Extremities Exam Present: edema, tenderness, joint swelling (left knee). Absent: cyanosis, clubbing - Routine Skin Exam Present: intact, erythema (left knee), rash (pruritic). Absent: mottling, petechiae, jaundice - Routine Neurological Exam Present: alert, oriented X3, CN II-XII intact, normal reflexes. Absent: altered mental status - Routine Psychiatric Exam Present: normal affect, normal thought process, cooperative, good insight, good judgment. Absent: depressed, anxious Internal Medicine Results - Labs CBC & Chem 7: 07/20/17 15:31 06/05/17 15:31 Progress Note-A&P (1) Septic prepatellar bursitis of left knee Status: Acute Assessment and plan: Vancomycin, doxycycline, rifampin--due to indwelling hardware. Current Visit: Yes (2) Squamous cell carcinoma of lung Status: Chronic Current Visit: Yes (3) Prostate cancer metastatic to bone Status: Chronic Current Visit: Yes (4) Chronic pain due to neoplasm Status: Chronic Current Visit: Yes (5) Constipation Status: Acute Assessment and plan: [place] Current Visit: Yes (6) Spongiotic dermatitis Status: Acute Current Visit: Yes - Time Spent With Patient Total time spent is greater than 50% in coordination of care (as documented) at patient's floor/unit and/or counseling patient: 25 - 35 minutes Sepsis Assessment - Evaluation Sepsis screening result: No Definite Risk Hospital Course Summary Disclaimer: The visit summary below is not to be considered part of the above Progress Note. Hospital Course: 06/06/17 17:50 Pt is now post operative I&D of left knee infected bursa. Presumptive Dx of MRSA. He has indwelling hardware in his back from previous spine stimulator so I added rifampin.
[2017-06-06] MEDS: MOMETASONE 0.1% TP SCH ×2 (17:55→21:29)
[2017-06-06] MEDS: ALBUTEROL 2.5mg/3ml (0.083%) NEB AEROSOL SCH (21:20)
[2017-06-06] MEDS: FEXOFENADINE 180 MG TABLET PO SCH (21:31)
[2017-06-06] MEDS: COLCHICINE 0.6 MG TABLET PO SCH (21:31)
[2017-06-06] MEDS: NIFEREX FORTE 150 CAPSULE PO SCH (21:32)
[2017-06-06] MEDS: AMLODIPINE 5 MG TABLET PO SCH (21:32)
[2017-06-06] MEDS: CALCIUM 500 + VIT D 200 TABLET PO SCH (21:33)
[2017-06-06] MEDS: CYANOCOBALAMIN (B-12) 500mcg TABLET PO SCH (21:36)
[2017-06-06] MEDS: LISINOPRIL 20 MG TABLET PO SCH (21:36)
[2017-06-06] MEDS: ASCORBIC ACID 500 MG TABLET PO SCH (21:37)
[2017-06-06] MEDS: GLUCOSAMINE/CHONDROITIN 500 MG/400 MG CAPSULE PO SCH (21:39)
[2017-06-07] MEDS: HYDROCODONE/APAP 7.5 MG/325 MG TABLET PO PRN ×3 (00:18→13:56)
[2017-06-07] MEDS: NALOXEGOL 12.5 MG TABLET PO SCH (06:20)
[2017-06-07] MEDS: OMEPRAZOLE 20 MG CAPSULE PO SCH (06:20)
[2017-06-07] MEDS: ALBUTEROL 2.5mg/3ml (0.083%) NEB AEROSOL SCH ×4 (08:42→21:05)
[2017-06-07] MEDS ORDERED: CYCLOBENZAPRINE 5 MG TABLET PO PRN (08:45)
[2017-06-07] MEDS: MULTI-VITAMIN + MINERAL TABLET PO SCH (09:30)
[2017-06-07] MEDS: RIFAMPIN 300 MG CAPSULE PO SCH (09:32)
[2017-06-07] MEDS: MOMETASONE 0.1% TP SCH ×2 (09:33→21:45)
--- NOTE | 2017-06-07 09:34 | Orthopedic Progress Note ---
Date: Subjective/Severity of Illness: Mr Yates is eating breakfast and reports his pain is under good control. He has been up to the with nursing assisting him. He lives alone and is concerned about caring for himself at home. Currently on IV Vanco and Doxycycline PO. The Vanco trough is low this AM. Orthopedic Objective PO Vital signs: Temperature 98.1 F 06/07/17 07:56 Pulse Rate 70 06/07/17 07:56 Respiratory Rate 16 06/07/17 08:35 Blood Pressure 135/59 06/07/17 07:56 Pulse Oximetry 98 06/07/17 08:35 Oxygen Delivery Method Nasal Cannula Oxygen Flow Rate 3 Height and Weight: Weight 233 lb 0.458 oz Body Mass Index 29.5 - Constitutional General Appearance: Present: alert, no acute distress, well developed, well nourished - Respiratory Exam Present: non-labored - Cardiovascular Exam Present: pedal pulses intact - Surgical Site Incision: dressing intact, bloody drainage present Drains Present: alondra Drain Output: serosanguinous, minimal amount - Integumentary Exam Present: pink, warm, dry. Absent: erythema (Skin looks good without signs of cellulitis. ) - Neurological Exam Present: no deficits - Psychiatric Exam Present: alert, normal affect - Labs Result Diagrams: 06/07/17 03:32 06/07/17 03:32 Abnormal lab results 06/07/17 06/07/17 06/07/17 Range/Units 03:32 03:32 03:32 WBC 3.9 L D (4.5-11.0) T/MM3 RBC 3.18 L (4.50-5.90) M/MM3 Hgb 9.0 L D (13.5-17.5) GM/DL Hct 27.8 L D (41-53) % RDW Std Deviation 54.2 H (36.9-50.2) FL MPV 9.0 L (9.4-12.4) UM3 Immature Gran % (Auto) 0.8 H (0.0-0.5) % Neut % (Auto) 72.7 H (33-66) % Lymph % (Auto) 12.3 L (23-45) % [place] % (Auto) 9.3 H (0-9.0) % Eos % (Auto) 4.4 H (0-4) % Lymph # 0.5 L (1-4.8) T/MM3 Glucose 111 H (75-110) MG/DL Total Protein 6.0 L (6.3-8.2) G/DL Globulin 2.3 L (2.4-3.6) G/DL Vancomycin Trough 8.22 L (15-20) UG/ML H & H 06/07/17 Range/Units 03:32 Hgb 9.0 L D (13.5-17.5) GM/DL Hct 27.8 L D (41-53) % Orthopedic Assessment and Plan (1) Prepatellar bursitis, left knee Status: Acute Assessment and Plan: Mr Yates appears to be doing well. Skin looks good and infection appears to be resolving. He is concerned about going home too quickly. Vanco trough was low this AM. Taking PO Doxycycline as well. No surgical culture obtained on 06/06 but cultures from 06/03 show Staph A that is pansensitive. Dressing changed. Alondra drain in place. I will recheck his incisions and drainage tomorrow morning. Hospital Course Summary Disclaimer: The visit summary below is not to be considered part of the above Progress Note. Hospital Course: 06/06/17 17:50 Pt is now post operative I&D of left knee infected bursa. Presumptive Dx of MRSA. He has indwelling hardware in his back from previous spine stimulator so I added rifampin.
--- NOTE | 2017-06-07 09:55 | Pharmacy Consult-Antibiotics ---
Pharmacy Consult-Vancomycin - Laboratory Information WBC 3.9 T/MM3 (4.5-11.0) L D 06/07/17 03:32 BUN 12.0 MG/DL (9-20) 06/07/17 03:32 Creatinine 0.8 MG/DL (0.8-1.5) 06/07/17 03:32 Procalcitonin < 0.05 NG/ML 06/05/17 15:31 Vancomycin Trough 8.22 UG/ML (15-20) L 06/07/17 03:32 - Consult Information Will increase vancomycin to 1500mg IV q8h and validate dose with a trough on . Thank you.
[2017-06-07] MEDS: NS 1,000 ML IV SCH ×2 (11:58→20:31)
--- NOTE | 2017-06-07 13:51 | Progress Note ---
Subjective: The patient was seen at 1330 with friend at bedside. The patient reports doing well and slept well during the night. Denies fevers , chills, sweats. Denies sore throat, shortness of breath, dyspnea on exertion , cough, sputum production, chest pain. Denies nausea, vomiting, diarrhea. He has had 1 small bowel movement today. He reports his pain is well controlled. Is urinating without difficulty, denies dysuria, notes discoloration of urine secondary to rifampin. The patient reports he is on oxygen at home usually 3 L when he is sedentary and increases it to 4 L when his up and about. Objective Vital signs: Temperature 98.1 F 06/07/17 07:56 Pulse Rate 66 06/07/17 08:00 Respiratory Rate 16 06/07/17 11:25 Blood Pressure 135/59 06/07/17 07:56 Pulse Oximetry 96 06/07/17 11:25 Oxygen Delivery Method Nasal Cannula Oxygen Flow Rate 3 Selected Entries 06/05/17 16:44 06/06/17 10:52 06/07/17 07:56 Temperature 98.9 F 98.7 F 98.1 F Weight: 233 lb 0.458 oz - Additional findings Additional findings: In general, the patient is alert and oriented 3 cooperative with exam and in no respiratory distress on 3 L of oxygen by nasal cannula HEENT head is atraumatic,normocephalic, no conjunctival petechiae, no oral thrush, mucous membranes are moist and pink, he has a small abrasion above the right eyebrow which he reports is from picking a pimple Lungs are clear to auscultation without wheezes or crackles CV regular rate and rhythm without murmur Abdomen is soft, bowel sounds are present,there is no guarding or rebound Extremities no clubbing, no cyanosis, no edema, left knee with Satish wrap in place which was not removed Skin warm and dry, no sign of rash Neuro patient is alert IV access in the right hand clean and dry Results - Labs CBC & Chem 7: 06/07/17 03:32 06/07/17 03:32 Labs: Microbiology 06/03/17 13:59 Bursa, Knee, Left Gram Stain - Final 06/03/17 13:59 Bursa, Knee, Left Body Fluid Culture - Final Staphylococcus aureus Susceptibilities: Clindamycin with an ANDRÉS of less than or equal to 0.12 Doxycycline with an ANDRÉS less than or equal to 0.5 Erythromycin with an ANDRÉS of less than or equal to 0.25 Oxacillin ANDRÉS is less than or equal to 0.25 Tetracycline ANDRÉS less than or equal to 1 Admit from sulfa ANRDÉS less than or equal to 10 Vancomycin ANDRÉS less than or equal to 0.5 Laboratory Tests 06/03/17 06/03/17 06/03/17 12:56 13:59 13:59 AST ALT C-Reactive Protein 41.2 H Fluid Type Aspirate Fluid Color Yellow Fluid Turbidity Cloudy Fluid RBC [address]155 Fld Tot Nucleated Cell 82532 Fluid Neutrophils 89 Fluid Lymphocytes 5 Fluid Monocytes 6 Fluid Crystal Appear Cloudy A Fluid Crystal Color Gina A 06/07/17 03:32 AST 19 ALT 36 C-Reactive Protein Fluid Type Fluid Color Fluid Turbidity Fluid RBC Fld Tot Nucleated Cell Fluid Neutrophils Fluid Lymphocytes Fluid Monocytes Fluid Crystal Appear Fluid Crystal Color Laboratory Tests 06/05/17 06/07/17 15:31 03:32 WBC 6.8 3.9 L D Hgb 10.3 L 9.0 L D Plt Count 197 173 Assessment and Plan Assessment and Plan: Assessment: Methicillin susceptible staph aureus septic prepatellar bursitis of the left knee Decreasing WBC, may be related to vancomycin Squamous cell carcinoma of the lung Prostate cancer with metastases to the bone 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 We will will discontinue vancomycin, rifampin, and doxycycline. The patient has no allergies therefore will start on oral clindamycin 300 mg by mouth every 6 hours. Length of therapy to be determined by his clinical response and repeat C-reactive proteins. Will recheck CBC in a.m. as well as CRP The patient has had 1 bowel movement today.He is on narcotics for pain. Patient reports he has been active in his room being able to walk to the bathroom without assistance will continue to monitor. Discussed with patient. Sepsis Assessment - Evaluation Sepsis screening result: No Definite Risk Hospital Course Summary Disclaimer: The visit summary below is not to be considered part of the above Progress Note. Hospital Course: 06/06/17 17:50 Pt is now post operative I&D of left knee infected bursa. Presumptive Dx of MRSA. He has indwelling hardware in his back from previous spine stimulator so I added rifampin.
[2017-06-07] MEDS: ACETAMINOPHEN 500 MG TABLET PO PRN (13:56)
[2017-06-07] MEDS: CLINDAMYCIN 300 MG CAPSULE PO SCH ×2 (18:48→23:50)
[2017-06-07] MEDS: LISINOPRIL 20 MG TABLET PO SCH (21:35)
[2017-06-07] MEDS: COLCHICINE 0.6 MG TABLET PO SCH (21:35)
[2017-06-07] MEDS: CYANOCOBALAMIN (B-12) 500mcg TABLET PO SCH (21:36)
[2017-06-07] MEDS: FEXOFENADINE 180 MG TABLET PO SCH (21:36)
[2017-06-07] MEDS: NIFEREX FORTE 150 CAPSULE PO SCH (21:36)
[2017-06-07] MEDS: CALCIUM 500 + VIT D 200 TABLET PO SCH (21:36)
[2017-06-07] MEDS: ASCORBIC ACID 500 MG TABLET PO SCH (21:37)
[2017-06-07] MEDS: AMLODIPINE 5 MG TABLET PO SCH (21:37)
[2017-06-07] MEDS: GLUCOSAMINE/CHONDROITIN 500 MG/400 MG CAPSULE PO SCH (21:42)
[2017-06-08] MEDS: NS 1,000 ML IV SCH ×3 (01:08→21:43)
[2017-06-08] MEDS: OMEPRAZOLE 20 MG CAPSULE PO SCH (06:27)
[2017-06-08] MEDS: NALOXEGOL 12.5 MG TABLET PO SCH (06:27)
[2017-06-08] MEDS: ALBUTEROL 2.5mg/3ml (0.083%) NEB AEROSOL SCH ×4 (07:45→21:25)
--- NOTE | 2017-06-08 08:34 | Orthopedic Progress Note ---
Date: Subjective/Severity of Illness: Mr Yates is doing well. Surgical pain is controlled to his satisfaction. He has been up in his room. He is on Oxygen at home and demands here have been stable. Had a larger BM today. Appetite is good. Afebrile and has no chills or body aches. Tolerating the antibiotic ok. Currently on oral Clindamycin. The IV Vanco/Rifampin & PO Doxycycline all d/c' d 06/07 by ID. Orthopedic Objective PO Vital signs: Temperature 97.3 F 06/08/17 08:00 Pulse Rate 81 06/08/17 08:00 Respiratory Rate 18 06/08/17 08:00 Blood Pressure 153/76 H 06/08/17 08:00 Pulse Oximetry 98 06/08/17 08:00 Oxygen Delivery Method Nasal Cannula Oxygen Flow Rate 3 Fraction of Inspired Oxygen 3 Height and Weight: Weight 233 lb 0.458 oz Body Mass Index 29.5 - Constitutional General Appearance: Present: alert, no acute distress, well developed, well nourished - Respiratory Exam Present: non-labored - Cardiovascular Exam Present: pedal pulses intact - Extremities Exam Extremities: Present: normal capillary refill - Surgical Site Incision: dressing intact Drains Present: alondra Drain Output: minimal amount (scant serous drainage noted.) - Integumentary Exam Present: pink, warm, dry. Absent: erythema (Skin looks good without signs of cellulitis. ) - Neurological Exam Present: no deficits - Psychiatric Exam Present: alert, normal affect - Labs Result Diagrams: 06/08/17 03:53 06/07/17 03:32 Abnormal lab results 06/08/17 06/08/17 Range/Units 03:53 03:53 WBC 3.6 L (4.5-11.0) T/MM3 RBC 3.07 L (4.50-5.90) M/MM3 Hgb 8.7 L (13.5-17.5) GM/DL Hct 27.2 L (41-53) % RDW Std Deviation 54.7 H (36.9-50.2) FL MPV 9.2 L (9.4-12.4) UM3 Immature Gran % (Auto) 0.6 H (0.0-0.5) % Neut % (Auto) 76.9 H (33-66) % Lymph % (Auto) 11.2 L (23-45) % Lymph # 0.4 L (1-4.8) T/MM3 C-Reactive Protein 34.4 H (0-9) MG/L H & H 06/07/17 06/08/17 Range/Units 03:32 03:53 Hgb 9.0 L D 8.7 L (13.5-17.5) GM/DL Hct 27.8 L D 27.2 L (41-53) % Orthopedic Assessment and Plan (1) Prepatellar bursitis, left knee Status: Acute Assessment and Plan: Pt switched to PO Clindamycin by I.D. on 06/07/17. Tolerating PO antibiotics well. Knee looks good. No S/SX of worsening infection. Afebrile Labs continue to trend downward with WBC 3.6 & Hgb 8.7 . Will monitor. CRP elevated at 34.4 , Check labs in AM to follow trends. Will likely pull the alondra drain in the knee tomorrow AM. Hospital Course Summary Disclaimer: The visit summary below is not to be considered part of the above Progress Note. Hospital Course: 06/06/17 17:50 Pt is now post operative I&D of left knee infected bursa. Presumptive Dx of MRSA. He has indwelling hardware in his back from previous spine stimulator so I added rifampin.
[2017-06-08] MEDS: CLINDAMYCIN 300 MG CAPSULE PO SCH ×4 (10:04→21:33)
[2017-06-08] MEDS: MULTI-VITAMIN + MINERAL TABLET PO SCH (10:04)
[2017-06-08] MEDS: MOMETASONE 0.1% TP SCH ×2 (10:05→21:35)
--- NOTE | 2017-06-08 11:29 | Progress Note ---
Subjective: The patient was seen 10:30. The patient reports doing well and slept well during the night. Denies fevers, chills, sweats. Denies sore throat although he does point at an area on the right of his neck which he reports is sore. He is on his home O2 level of 3 l by ms, denies shortness of breath, dyspnea on exertion, cough, sputum production , chest pain. Denies nausea, vomiting, or diarrhea. Is urinating without difficulty, denies dysuria. He is having bowel movements without difficulty. He denies diarrhea. He is tolerating clindamycin without problems. The rash that he has is secondary to a reaction to chemotherapy, he reports nothing new. Objective Vital signs: Temperature 97.3 F 06/08/17 08:00 Pulse Rate 81 06/08/17 08:00 Respiratory Rate 18 06/08/17 11:10 Blood Pressure 153/76 H 06/08/17 08:00 Pulse Oximetry 99 06/08/17 11:10 Oxygen Delivery Method Nasal Cannula Oxygen Flow Rate 3 Fraction of Inspired Oxygen 3 Weight: 231 lb 11.293 oz - Additional findings Additional findings: In general, the patient is alert and oriented 3, cooperative with exam, and in no respiratory distress. HEENT: Head is atraumatic, normocephalic, no conjunctival petechiae, no oral thrush, mucous membranes are moist and pink. Abrasion above right eyebrow unchanged. There is a palpable mass about .5 cm the right of his trachea-no fluctuances or erythema, unilateral Lungs: Clear to auscultation without wheezes, crackles or rhonchi CV: Regular rate and rhythm without murmur Abdomen: Soft, nontender, bowel sounds are present, there is no guarding, no rebound. Extremities: No clubbing, no cyanosis, no edema. Left knee dressing was removed with nurse's assistance- there is a Y-shaped alondra drain extending from a medial and lateral incision at the knee-no drainage noted. The skin is pink, not indurated, no crepitance, no pain with palpation. There is no evidence of drainage from the incision or from the [place] drain. Skin: Warm and dry, resolving rash on chest (from chemo) Neuro: Patient is alert IV access: right hand without phlebitis Results - Labs CBC & Chem 7: 06/08/17 03:53 06/07/17 03:32 Labs: Laboratory Tests 06/03/17 06/05/17 06/07/17 12:56 15:31 03:32 Hgb 10.3 L 9.0 L D Plt Count 197 173 C-Reactive Protein 41.2 H 06/08/17 06/08/17 03:53 03:53 Hgb 8.7 L Plt Count 152 C-Reactive Protein 34.4 H Laboratory Tests 06/05/17 06/07/17 06/08/17 15:31 03:32 03:53 WBC 6.8 3.9 L D 3.6 L Assessment and Plan Assessment and Plan: Assessment: Methicillin susceptible staph aureus septic prepatellar bursitis of the left knee Decreasing WBC, may be related to vancomycin which was discontinued yesterday.. His white count today is 3.6 will check tomorrow. Anemia his hemoglobin has gone from 10.3 on the to 8.7 today-the patient has no sign of active bleeding. We'll recheck tomorrow. 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 Indwelling hardware in his back with his spine stimulator Plan: Continue clindamycin, patient is tolerating without difficulty. His C-reactive protein is 34.4. His inflammatory markers may be elevated from multifactorial reasons in light of his cancer. Will recheck CBC as well as BMP in the morning as his potassium is slightly increased. Patient reports he has been active in his room being able to walk to the bathroom without assistance will continue to monitor. Discussed with patient. Sepsis Assessment - Evaluation Sepsis screening result: No Definite Risk Hospital Course Summary Disclaimer: The visit summary below is not to be considered part of the above Progress Note. Hospital Course: 06/06/17 17:50 Pt is now post operative I&D of left knee infected bursa. Presumptive Dx of MRSA. He has indwelling hardware in his back from previous spine stimulator so I added rifampin.
[2017-06-08] MEDS: ACETAMINOPHEN 500 MG TABLET PO PRN (11:55)
[2017-06-08] MEDS: HYDROCODONE/APAP 7.5 MG/325 MG TABLET PO PRN ×2 (13:36→21:34)
[2017-06-08] MEDS: GLUCOSAMINE/CHONDROITIN 500 MG/400 MG CAPSULE PO SCH (21:31)
[2017-06-08] MEDS: CYANOCOBALAMIN (B-12) 500mcg TABLET PO SCH (21:31)
[2017-06-08] MEDS: AMLODIPINE 5 MG TABLET PO SCH (21:32)
[2017-06-08] MEDS: FEXOFENADINE 180 MG TABLET PO SCH (21:32)
[2017-06-08] MEDS: COLCHICINE 0.6 MG TABLET PO SCH (21:32)
[2017-06-08] MEDS: LISINOPRIL 20 MG TABLET PO SCH (21:32)
[2017-06-08] MEDS: NIFEREX FORTE 150 CAPSULE PO SCH (21:32)
[2017-06-08] MEDS: CALCIUM 500 + VIT D 200 TABLET PO SCH (21:32)
[2017-06-08] MEDS: ASCORBIC ACID 500 MG TABLET PO SCH (21:34)
[2017-06-09] MEDS: NS 1,000 ML IV SCH ×3 (04:41→12:58)
[2017-06-09] MEDS: NALOXEGOL 12.5 MG TABLET PO SCH (05:53)
[2017-06-09] MEDS: OMEPRAZOLE 20 MG CAPSULE PO SCH (05:54)
[2017-06-09] MEDS: HYDROCODONE/APAP 7.5 MG/325 MG TABLET PO PRN (05:54)
[2017-06-09] MEDS: ALBUTEROL 2.5mg/3ml (0.083%) NEB AEROSOL SCH ×2 (07:04→10:22)
--- NOTE | 2017-06-09 08:10 | Discharge Instructions ---
Discharge Plan - Med Rec/Dispo Referrals/Follow Up: Arsalan Culver MD [Physician] - 06/16/17 8:30 am Eagle Hardwick PA [Physician Rn Post Partum] - Prescriptions: No Action Lisinopril 20 mg PO HS #0 Amlodipine Besylate 5 mg PO HS #0 tab HydrOXYzine [Atarax] 25 mg PO TID PRN #0 tab PRN Reason: Itching Cyanocobalamin (Vitamin B-12) [Vitamin B-12] 1,000 mcg PO HS Iron Ps Cmplx/Vit B12/FA [Poly-Iron 150 Forte Capsule] 2 cap PO HS Hydrocodone/APAP 7.5/325 [[place] 7.5/325] 1 tab PO Q4H PRN PRN Reason: Pain Multivitamin with Minerals [Men's One Daily] 1 tab PO HS Ketoconazole Cream [Nizoral 2% Cream] 1 applic TOP BID Glucosa Sapp 2Kcl/Chondroitin Sapp [Glucosamine Chondroitin Caplet] 1 tab PO HS Mometasone 0.1% Cream [Elocon 0.1% Cream] 1 applic TP BID Calcium Carbonate/Vitamin D3 [Calcium 600-Vit D3 200 Tablet] 1 tab PO HS Albuterol Sulfate 2.5 mg AEROSOL QID Albuterol Inhaler [Ventolin Hfa] 1 - 2 puff ORAL INH Q3-4HR PRN PRN Reason: Prn Orders Cyclobenzaprine [Flexeril] 5 mg PO TID PRN PRN Reason: Prn Orders Levofloxacin [Levaquin] 500 mg PO DAILY #7 tablet Sulfamethoxazole/Trimethoprim [Bactrim Ds Tablet] 2 tab PO BID #40 tab Potassium Chloride [Klor-Con M20] 40 meq PO HS #0 Ascorbic Acid [Vitamin C] 100 mg PO HS #0 tab Colchicine [Colcrys] 0.6 mg PO HS #0 tab Omeprazole [Prilosec] 20 mg PO HS Fluocinonide 0.05% Cream [Lidex 0.05% Cream] 1 applic TOP DAILY PRN PRN Reason: Prn Orders Fexofenadine [Gricelda] 180 mg PO HS Acetaminophen [Acetaminophen Extra Strength] 1,000 mg PO Q6H PRN PRN Reason: Pain - Disposition 01 Discharged Home, Self-Care
--- NOTE | 2017-06-09 08:16 | Orthopedic Progress Note ---
Date: Subjective/Severity of Illness: A little more sore overnight but overall doing well. No new complaints or symptoms today. Orthopedic Objective PO Vital signs: Temperature 97.9 F 06/09/17 07:21 Pulse Rate 75 06/09/17 07:30 Respiratory Rate 18 06/09/17 07:21 Blood Pressure 145/73 H 06/09/17 07:21 Pulse Oximetry 97 06/09/17 07:21 Oxygen Delivery Method Nasal Cannula Oxygen Flow Rate 3.0 Fraction of Inspired Oxygen 3 Height and Weight: Weight 232 lb 12.93 oz Body Mass Index 29.5 - Constitutional General Appearance: Present: alert, no acute distress, well developed, well nourished - Respiratory Exam Present: non-labored - Cardiovascular Exam Present: pedal pulses intact - Extremities Exam Extremities: Present: normal capillary refill - Surgical Site Incision: dressing intact Drains Present: alondra - Integumentary Exam Present: erythema (mild over the patella.) - Neurological Exam Present: no deficits - Psychiatric Exam Present: alert, normal affect - Labs Result Diagrams: 06/09/17 04:20 06/09/17 04:20 Abnormal lab results 06/09/17 06/09/17 Range/Units 04:20 04:20 WBC 4.1 L (4.5-11.0) T/MM3 RBC 3.18 L (4.50-5.90) M/MM3 Hgb 8.9 L (13.5-17.5) GM/DL Hct 28.0 L (41-53) % RDW Std Deviation 54.3 H (36.9-50.2) FL MPV 8.8 L (9.4-12.4) UM3 Immature Gran % (Auto) 0.7 H (0.0-0.5) % Neut % (Auto) 72.7 H (33-66) % Lymph % (Auto) 13.4 L (23-45) % Eos % (Auto) 5.4 H (0-4) % Lymph # 0.6 L (1-4.8) T/MM3 Creatinine 0.7 L (0.8-1.5) MG/DL H & H 06/07/17 06/08/17 06/09/17 Range/Units 03:32 03:53 04:20 Hgb 9.0 L D 8.7 L 8.9 L (13.5-17.5) GM/DL Hct 27.8 L D 27.2 L 28.0 L (41-53) % Orthopedic Assessment and Plan (1) Prepatellar bursitis, left knee Status: Acute Assessment and Plan: Labs improving. F/U in 1 week in ortho clinic. Cont Clindamycin. Discharge instructions discussed with pt. Discharge as recommended by hospitalist service. Hospital Course Summary Disclaimer: The visit summary below is not to be considered part of the above Progress Note. Hospital Course: 06/06/17 17:50 Pt is now post operative I&D of left knee infected bursa. Presumptive Dx of MRSA. He has indwelling hardware in his back from previous spine stimulator so I added rifampin.
[2017-06-09] MEDS: MULTI-VITAMIN + MINERAL TABLET PO SCH (08:33)
[2017-06-09] MEDS: CLINDAMYCIN 300 MG CAPSULE PO SCH ×2 (08:33→12:30)
[2017-06-09] MEDS: MOMETASONE 0.1% TP SCH (08:36)
[2017-06-09 11:29] VITALS: BP 142/69; PULSE 82; RESP 20; TEMP 97; O2SAT 96
--- NOTE | 2017-06-09 13:33 | Discharge Instructions ---
Discharge Plan - Med Rec/Dispo Referrals/Follow Up: Arsalan Culver MD [Physician] - 06/16/17 8:30 am Eagle Hardwick PA [Physician Electrical Control Assembler] - [facility] Instructions: Knee Bursitis (GEN), Septic Arthritis (DC), [facility] Instructions Prescriptions: New Clindamycin [Cleocin] 300 mg PO QID #30 capsule Continue Lisinopril 20 mg PO HS #0 Amlodipine Besylate 5 mg PO HS #0 tab HydrOXYzine [Atarax] 25 mg PO TID PRN #0 tab PRN Reason: Itching Cyanocobalamin (Vitamin B-12) [Vitamin B-12] 1,000 mcg PO HS Iron Ps Cmplx/Vit B12/FA [Poly-Iron 150 Forte Capsule] 2 cap PO HS Hydrocodone/APAP 7.5/325 [[place] 7.5/325] 1 tab PO Q4H PRN PRN Reason: Pain Multivitamin with Minerals [Men's One Daily] 1 tab PO HS Ketoconazole Cream [Nizoral 2% Cream] 1 applic TOP BID Glucosa Sapp 2Kcl/Chondroitin Sapp [Glucosamine Chondroitin Caplet] 1 tab PO HS Mometasone 0.1% Cream [Elocon 0.1% Cream] 1 applic TP BID Calcium Carbonate/Vitamin D3 [Calcium 600-Vit D3 200 Tablet] 1 tab PO HS Albuterol Sulfate 2.5 mg AEROSOL QID Albuterol Inhaler [Ventolin Hfa] 1 - 2 puff ORAL INH Q3-4HR PRN PRN Reason: Prn Orders Cyclobenzaprine [Flexeril] 5 mg PO TID PRN PRN Reason: Prn Orders Potassium Chloride [Klor-Con M20] 40 meq PO HS #0 Ascorbic Acid [Vitamin C] 100 mg PO HS #0 tab Colchicine [Colcrys] 0.6 mg PO HS #0 tab Omeprazole [Prilosec] 20 mg PO HS Fluocinonide 0.05% Cream [Lidex 0.05% Cream] 1 applic TOP DAILY PRN PRN Reason: Prn Orders Fexofenadine [Gricelda] 180 mg PO HS Acetaminophen [Acetaminophen Extra Strength] 1,000 mg PO Q6H PRN PRN Reason: Pain Discontinued Levofloxacin [Levaquin] 500 mg PO DAILY #7 tablet Sulfamethoxazole/Trimethoprim [Bactrim Ds Tablet] 2 tab PO BID #40 tab - Disposition 01 Discharged Home, Self-Care
--- NOTE | 2017-06-09 13:37 | Discharge Summary ---
Discharge Information Date of admission: 06/06/17 11:53 Attending Physician: Huang Vides DO Primary care physician: Huang Vides DO - Discharge Diagnosis (1) Septic prepatellar bursitis of left knee Status: Acute (2) Squamous cell carcinoma of lung Status: Chronic (3) Prostate cancer metastatic to bone Status: Chronic (4) Chronic pain due to neoplasm Status: Chronic (5) Constipation Qualifiers: Constipation type: drug induced constipation Qualified Code(s): K59.03 - Drug induced constipation Status: Chronic (6) Spongiotic dermatitis Status: Chronic - Laboratory Labs: 06/09/17 04:20 06/09/17 04:20 History of Present Illness HPI: Mr. Yates is a pleasant 67 yo white male who presented to ER with significant left knee pain and swelling with redness. He was seen and evaluated recently in the ER for the same complaint. While there, ortho tapped the knee for culture/ sensitivity. He is now in significant pain. He has had MRSA in the past and is currently being treated for lung cancer. Hospital Course This is a general summary of the patient's hospital course. For more details refer to the complete medical record. Hospital course: 06/06/17 17:50 Pt is now post operative I&D of left knee infected bursa. Presumptive Dx of MRSA. He has indwelling hardware in his back from previous spine stimulator so I added rifampin. Time spent with patient: 25 - 35 minutes Discharge Plan - Med Rec/Dispo Referrals/Follow Up: Arsalan Culver MD [Physician] - 06/16/17 8:30 am Eagle Hardwick PA [Physician Strawhat Inspector And Packer] - Huang Vides DO [Family Provider] - 06/18/17 [place] Instructions: Knee Bursitis (GEN), Septic Arthritis (DC), [facility] Instructions Prescriptions: New Clindamycin [Cleocin] 300 mg PO QID #30 capsule Continue Lisinopril 20 mg PO HS #0 Amlodipine Besylate 5 mg PO HS #0 tab HydrOXYzine [Atarax] 25 mg PO TID PRN #0 tab PRN Reason: Itching Cyanocobalamin (Vitamin B-12) [Vitamin B-12] 1,000 mcg PO HS Iron Ps Cmplx/Vit B12/FA [Poly-Iron 150 Forte Capsule] 2 cap PO HS Hydrocodone/APAP 7.5/325 [[place] 7.5/325] 1 tab PO Q4H PRN PRN Reason: Pain Multivitamin with Minerals [Men's One Daily] 1 tab PO HS Ketoconazole Cream [Nizoral 2% Cream] 1 applic TOP BID Glucosa Sapp 2Kcl/Chondroitin Sapp [Glucosamine Chondroitin Caplet] 1 tab PO HS Mometasone 0.1% Cream [Elocon 0.1% Cream] 1 applic TP BID Calcium Carbonate/Vitamin D3 [Calcium 600-Vit D3 200 Tablet] 1 tab PO HS Albuterol Sulfate 2.5 mg AEROSOL QID Albuterol Inhaler [Ventolin Hfa] 1 - 2 puff ORAL INH Q3-4HR PRN PRN Reason: Prn Orders Cyclobenzaprine [Flexeril] 5 mg PO TID PRN PRN Reason: Prn Orders Potassium Chloride [Klor-Con M20] 40 meq PO HS #0 Ascorbic Acid [Vitamin C] 100 mg PO HS #0 tab Colchicine [Colcrys] 0.6 mg PO HS #0 tab Omeprazole [Prilosec] 20 mg PO HS Fluocinonide 0.05% Cream [Lidex 0.05% Cream] 1 applic TOP DAILY PRN PRN Reason: Prn Orders Fexofenadine [Gricelda] 180 mg PO HS Acetaminophen [Acetaminophen Extra Strength] 1,000 mg PO Q6H PRN PRN Reason: Pain Discontinued Levofloxacin [Levaquin] 500 mg PO DAILY #7 tablet Sulfamethoxazole/Trimethoprim [Bactrim Ds Tablet] 2 tab PO BID #40 tab - Disposition 01 Discharged Home, Self-Care
== END 2017-06-09 14:35 | disposition home or self-care (01) | DRG 501 ==
LOC: ED 13:57 → SRG 13:57
PROVIDERS: ADMIT Internal Medicine; ATTEND Internal Medicine

== ENCOUNTER 2017-10-23 07:30 | Inpatient (IN) ==
[~2017-10-23 07:30] MED LIST changes: +ACETAMINOPHEN 500 MG TABLET PO ONE; -AMIT50TA3 PO; -AMLO5TAB66 PO; -ASCO100T10 PO; -COLC0.6T54 PO; +DEXAMETHASONE 4 MG/ML INJECTION IVP ONE; -DICL100G5 TOP; -DOXY100T2 PO; +FAMOTIDINE PB 20 MG/50 ML BAG IV ONE; -HYDR-2164 PO; -HYDR1TAB82 PO; -HYDR25TA85 PO; -IOHEXOL 180 MG/ML 20ml INJECTION ONE; +LIDOCAINE 1% (10mg/ml) 2mL INJ PF SDV ID ONE; -LIDOCAINE 1% (10mg/ml) 5ml VIAL ONE; -LISI-126 PO; +MELOXICAM 15 MG TABLET PO ONE; +METOCLOPRAMIDE 10mg/2ml INJECTION IVP ONE; -MINO100T PO; -MIRT15TA7 PO; -MethylPREDNISolone ACETATE 40mg/1ml ONE; +NOZIN NASAL SWAB NAS ONE; -OMEP40CA11 PO; +ONDANSETRON 4 MG/2 ML INJECTION IVP ONE; -POTA20TA68 PO; -PREN1TAB46 PO; -SUCR1TAB PO; -TADA20TA; +TRANEXAMIC ACID 1,000 MG in NS 100 ML IV ONE; -VITA1CAP29 PO; -[UNRECOGNIZED DRUG - CODE] PO
[2017-10-23] MEDS ORDERED: EPINEPHrine PF 0.25 MG, BUPIVACAINE 0.25% PF 30 ML, MORPHINE SULFATE 15 MG, KETOROLAC I... OPSITE ONE (08:00)
[2017-10-23 10:27] VITALS: BMI 28.9
[2017-10-23] MEDS: LR 1,000 ML IV SCH ×2 (10:50→14:33)
[2017-10-23] MEDS ORDERED: CEFAZOLIN 1 G INJECTION IVP ONE (12:00)
--- NOTE | 2017-10-23 12:13 | Anesthesia Preoperative Report ---
Anesthesia Preoperative Record - Date and Time Date: 10/23/17 Preoperative Diagnosis: Rt SHANTA M16.11 Proposed Procedure: Right Total Hip with Robot NPO Since Date: 10/23/17 NPO Since Time: 00:00 Allergies/Adverse Reactions: Allergies Allergy/AdvReac Type Severity Reaction Status Date / Time No Known Drug Allergies Allergy Unknown Verified 10/23/17 10:36 - Vital Signs Vital Signs: Temperature 98.2 F 10/23/17 10:35 Pulse Rate 81 10/23/17 10:44 Respiratory Rate 20 10/23/17 10:35 Blood Pressure 133/63 10/23/17 10:35 Pulse Oximetry 100 10/23/17 10:35 Height and Weight: Height 6 ft 2 in Weight 102.3 kg Body Mass Index 28.9 - Medications Inpatient Medications: Current Medications Lactated Ringer's (Lactated Ringers) 1,000 mls @ 50 mls/hr IV .Q20H TC Last Admin: 10/23/17 10:50 Dose: 50 mls/hr Sodium Chloride (Iv Flush) 10 - 80 ml IV PRN PRN PRN Reason: Flushing Home Medications: Home Medications Medication Instructions Recorded Confirmed Type Albuterol HFA Inhaler [Ventolin 1 - 2 puff ORAL INH Q3-4HR PRN 06/03/17 History Hfa 90 mcg/actuation] Glucosa Sapp 2Kcl/Chondroitin Sapp 1 tab PO HS 06/03/17 10/23/17 History [Glucosamine Chondroitin Caplet] Mometasone 0.1% Cream [Elocon 0.1% 1 applicatio TP BID 06/03/17 10/23/17 History Cream] [place] 10 mg-acetaminophen 325 mg 1 tab PO Q8H PRN 08/04/17 10/23/17 History tablet Seroquel (quetiapine) 25 mg tablet 25 mg PO HS tab 08/04/17 10/23/17 History albuterol sulfate 1.25 mg/3 mL 1.25 mg INH DAILY ml 08/04/17 10/23/17 History solution for nebulization fexofenadine 60 mg tablet 60 mg PO DAILY tab 08/04/17 10/23/17 History iron polysacch cplx 150 mg 1 cap PO DAILY cap 08/04/17 10/23/17 History iron-vit B12 25 mcg-folic acid 1 mg capsule Amlodipine [Norvasc] 5 mg PO DAILY 10/17/17 10/23/17 History Calcium 250 + D [Os Jhonatan + D] 1 tab PO DAILY 10/17/17 10/23/17 History Cyclobenzaprine HCl 1 tab PO BID PRN 10/17/17 10/23/17 History HydrOXYzine [Atarax] 25 mg PO Q8HPRN PRN 10/17/17 10/23/17 History Lisinopril [Prinivil] 20 mg PO DAILY 10/17/17 10/23/17 History Omeprazole [Prilosec] 20 mg PO ACB 10/17/17 10/23/17 History Potassium Chloride [Klor-Con M20] 20 meq PO DAILY 10/17/17 10/23/17 History Is Patient on Beta Bee?: No - Medical History Respiratory: Reports: Pneumonia (hx of more than 5 years ago), Sleep Apnea ( uses oxygen at home @ 3-4L), Other (Lung Ca- 3 liters at all times at home) Cardiovascular: Reports: Hypertension DENIES: Abnormal EKG, Congestive Heart Failure, Coronary Artery Disease, Heart Murmur Gastrointestional: Reports: Gastroesophageal Reflux Disease (well controlled), Gastrointestinal Bleeding, Ulcer, Other (crohns) Neuro/Musculoskeletal: Reports: HX.MS.OSAR, Back Problems (5 level lumbar fusion. Cervical paresthesia to Right shoulder with flexion), Other ( osteoarthritis) Denies: Cerebrovascular Accident Other History: Reports: Blood Transfusions, Chemotherapy (2016), Cancer (LUNG CANCER with bone mets), Other (radiation in 1999, 2015) DENIES: Anesthesia Reactions - Surgical History Respiratory Surgery/Treatments: Reports: Oxygen Administration (O2 3-4L AT HOME) GI Surgery/Treatments: Reports: Colon Resection, Colonoscopy, Other (INTESTINE SURGERY) Surgery/Treatment: REPORT: Prostatectomy, Other (PROSTATE CA) Musculoskeletal Surgery/Tx: Reports: Other (RIGHT KNEE DRAIN, BACK SURGERY) Anesthesia Reactions: None Hx Family Anesthesia Reaction: No History of Motion Sickness: No - Social History Smoking Status: Former smoker (quit 30 yrs ago) Hx Chewing Tobacco Use: No Substance Use Type: does not use Alcohol Intake Frequency: a few times a week - Pertinent Findings Laboratory: CBC and BMP 10/23/17 10:33 EKG: Sinus Rhythm - Physical Exam Respiratory Exam: Present: lungs clear, decreased breath sounds-R (throughout) Cardiovascular Exam: Present: regular rate and rhythm, no murmur - Airway Assessment Mallampati Score: III TMD: 3 Fingerbreadths Neck Extension: fair Teeth: upper dentures Overall Assessment: may be difficult intubation (smaller mouth opening) - ASA ASA Score: 3 - Plan Anesthesia: General TIVA (vs SAB), General Inhalation Gases, Neuroaxial Regional/Trunk Block: Spinal (vs General) - Discussion Discussion: Discussed risks/options/alternatives of anesthesia and questions answered. Patient consents. Nursing pain assessment noted. Present for Discussion: family member Attestation Statement: Prior to the delivery of any anesthetic medication, I examined the patient, developed the plan, obtained the patient's consent and discussed the risk and benefits of the procedure with the patient/guardian. - Additional Information Seen by Anesthesia: Yes
[2017-10-23] MEDS ORDERED: MIDAZOLAM 2mg/2ml INJECTION ONE ×3 (12:32→14:06)
[2017-10-23] MEDS ORDERED: FentaNYL 100 MCG/2 ML INJECTION ONE (12:32)
[2017-10-23] MEDS ORDERED: VANCOMYCIN 1,000 MG INJECTION IAR ONE (13:15)
[2017-10-23] MEDS ORDERED: HYDROMORPHONE 2 MG/ML INJECTION ONE (14:21)
[2017-10-23] MEDS ORDERED: PROPOFOL 20 ML ONE (14:41)
--- NOTE | 2017-10-23 15:34 | Anesthesia Postoperative Note ---
- Date and Time Date: 10/23/17 Time: 15:33 - Status Patient Participated in Evaluation: Patient Participated in Person Vital Signs: Temperature 98.2 F 10/23/17 10:35 Pulse Rate 81 10/23/17 10:44 Respiratory Rate 20 10/23/17 10:35 Blood Pressure 133/63 10/23/17 10:35 Pulse Oximetry 100 10/23/17 10:35 Respiratory Function: Airway Patent, Regular Respirations Cardiovascular Function: Regular Pulse EKG: Sinus Rhythm Mental Status: Alert and Oriented Pain Intensity: 0 (spinal intact) Hydration: IV Infusing Complications During Recover: None Apparent - Follow-Up Instructions Instructions: Per Surgeon
[2017-10-23] MEDS ORDERED: SALINE FLUSH 10ml SYRINGE IV PRN (15:38)
[2017-10-23] MEDS ORDERED: CYCLOBENZAPRINE 10 MG TABLET PO PRN (16:11)
[2017-10-23] MEDS ORDERED: DiphenhydrAMINE 25 MG CAPSULE PO PRN (16:11)
[2017-10-23] MEDS ORDERED: NOZIN NASAL SWAB NAS ONE (16:11)
[2017-10-23] MEDS ORDERED: ALBUTEROL 2.5mg/3ml (0.083%) NEB AEROSOL PRN (16:11)
[2017-10-23] MEDS ORDERED: NAPROXEN 220 MG TABLET PO PRN (16:11)
[2017-10-23] MEDS ORDERED: LORazepam 1 MG TABLET PO PRN (16:11)
[2017-10-23] MEDS ORDERED: ONDANSETRON 4 MG/2 ML INJECTION IVP PRN (16:11)
[2017-10-23] MEDS ORDERED: DiphenhydrAMINE 50 MG/ML INJECTION IVP PRN (16:11)
[2017-10-23] MEDS: NS 1,000 ML IV SCH (16:43)
--- NOTE | 2017-10-23 16:46 | XRay Report ---
Indication: postoperative image PROCEDURE: XR pelvis w/ 1 view RT hip: Encounter: Initial Comparison: October 31, 2014 Findings: Postoperative changes of right total hip replacement are seen. There is expected postoperative subcutaneous gas. No evidence of hardware failure or acute fracture. No retained radiopaque surgical instruments or sponges seen. Pelvic surgical clips. Mild joint space narrowing in the left hip. Impression: New right total hip prosthesis without evidence of immediate complication. .
--- NOTE | 2017-10-23 16:57 | Operative Note ---
- Procedure Preoperative Diagnosis: Right hip primary degenerative joint disease Postoperative Diagnosis: Same as preoperative diagnosis. Surgeon: Tanika Culver MD Gas Appliance Repairer: Eagle Hardwick Complications: None. Anesthesia: Spinal. Estimated Blood Loss: See Anesthesia Record. Fluids: Please see Anesthesia Record. Description of Procedure: Mr. Yates and his right hip were identified and marked in the preoperative holding area. He was brought back to the operating suite and spinal anesthetic was administered. He was then placed in a lateral decubitus position with his right hip up. The right lower extremity was prepped and draped in my normal sterile fashion. Timeout was performed. The [employer] robotic arm was used to assist with the surgery. A pelvic array was placed into the iliac crest. A posterior approach was utilized. An approximately 15 cm incision was made in the skin and dissection carried down to the muscle fascia which was then split in line with skin incision. A checkpoint was placed in the greater trochanter. The short external rotators were identified and tagged and detached. A capsulotomy was performed and the hip dislocated. A femoral neck osteotomy was performed at the pre-templated level measuring down from the femoral head 60mm. The head was removed and acetabulum exposed. Labrum was removed. The acetabulum was then registered with the robot. The robotic arm was then used to ream with a 59 reamer. The proximal femur was preventing me from anterior rising the cup. For this reason I changed to a manual reamer and again reamed up to a 59 reamer manually. I then placed a 60 mm cup in 20 of anteversion and 40 of tilt. I placed 2 screws in the posterior superior quadrant. A liner was then placed. The proximal femur was exposed and prepared with a cookie cutter followed by reaming and broaching to a size 6. We trialed with a 0 head. After thorough irrigation a final Accolade 2 size 6 stem with 127 neck was placed. I trialed with a +2.5 head and this felt better as far as length and it helped with stability. There was some anterior osteophytes which were impinging in these were removed. A final +2.5 ceramic 36 mm head was placed and the hip reduced. Betadine solution was used to irrigate throughout the case. It was followed by normal saline irrigation. Joint cocktail was injected throughout soft tissue. The capsulotomy was repaired with Ethibond. Short external rotators were also repaired with Ethibond. 1 g of vancomycin powder was placed into the wound. The muscle fascia was then repaired with #1 Vicryl. I then left my assistant professor of nursing to close the subcutaneous tissue with 2-0 Vicryl followed by running 4-0 Monocryl skin followed by Dermabond and a sterile dressing. The patient with any placed back into supine position and taken to recovery room in the care of anesthesia.
[2017-10-23] MEDS ORDERED: FALL RISK - PHARMACY CONSULT XX ONE (17:04)
[2017-10-23] MEDS: ACETAMINOPHEN 325 MG TABLET PO SCH ×2 (18:51→20:18)
[2017-10-23] MEDS: CEFAZOLIN 2 G in NS 100 ML IV SCH (20:14)
[2017-10-23] MEDS: DEXAMETHASONE 20 MG/5 ML INJECTION IVP SCH (20:15)
[2017-10-23] MEDS: NOZIN NASAL SWAB NAS SCH ×2 (20:16→21:26)
[2017-10-23] MEDS: AMLODIPINE 5 MG TABLET PO SCH (20:17)
[2017-10-23] MEDS: LISINOPRIL 20 MG TABLET PO SCH (20:17)
[2017-10-23] MEDS: DOCUSATE SODIUM 100 MG CAPSULE PO SCH (20:17)
[2017-10-23] MEDS: MOMETASONE 0.1% TP SCH (20:18)
[2017-10-23] MEDS ORDERED: ASPIRIN *EC* 81 MG TABLET PO SCH (21:00)
[2017-10-23] MEDS ORDERED: SENNOSIDES 8.6 MG TABLET PO SCH (21:00)
[2017-10-23] MEDS ORDERED: QUETIAPINE 25 MG TABLET PO SCH (21:00)
[2017-10-24] MEDS: Oxycodone *IR* 5 MG TABLET PO PRN ×4 (02:55→15:26)
[2017-10-24] MEDS: CEFAZOLIN 2 G in NS 100 ML IV SCH (03:36)
[2017-10-24] MEDS: DEXAMETHASONE 20 MG/5 ML INJECTION IVP SCH (03:36)
[2017-10-24] MEDS: NS 1,000 ML IV SCH ×2 (03:37→05:30)
[2017-10-24] MEDS: NOZIN NASAL SWAB NAS SCH ×2 (05:39→13:35)
[2017-10-24] MEDS ORDERED: OMEPRAZOLE 20 MG CAPSULE PO SCH (06:30)
--- NOTE | 2017-10-24 07:42 | Orthopedic Progress Note ---
Date: Subjective/Severity of Illness: Mr Yates is doing very well this AM. Denies much pain but did get some pain meds during the night. No CP, cough , SOA, nausea or GI distress. He has been up with good tolerance. Orthopedic Objective PO Vital signs: Temperature 97.8 F 10/24/17 07:32 Pulse Rate 96 10/24/17 07:32 Respiratory Rate 16 10/24/17 07:32 Blood Pressure 161/72 H 10/24/17 07:32 Pulse Oximetry 97 10/24/17 07:32 Height and Weight: Height 6 ft 2 in Weight 230 lb 9.656 oz Body Mass Index 28.9 - Constitutional General Appearance: Present: alert, cooperative, no acute distress - Respiratory Exam Present: non-labored - Cardiovascular Exam Present: pedal pulses intact - Extremities Exam Extremities: Present: pulses intact. Absent: calf tenderness - Surgical Site Incision: Mepilex dressing intact, dressing intact, no drainage - Integumentary Exam Present: pink, warm, dry - Neurological Exam Present: no deficits - Psychiatric Exam Present: alert, oriented, normal affect - Labs Result Diagrams: 10/24/17 04:26 10/24/17 04:26 Abnormal lab results 10/23/17 10/24/17 10/24/17 Range/Units 10:33 04:26 04:26 RBC 4.36 L (4.50-5.90) M/MM3 Hgb 12.3 L 9.6 L D (13.5-17.5) GM/DL Hct 36.6 L 29.3 L D (41-53) % MPV 9.3 L (9.4-12.4) UM3 Neut % (Auto) 76.5 H (33-66) % Lymph % (Auto) 12.8 L (23-45) % Lymph # (Auto) 0.7 L (1-4.8) T/MM3 Creatinine 0.7 L (0.8-1.5) MG/DL Glucose 157 H (75-110) MG/DL H & H 10/23/17 10/24/17 Range/Units 10:33 04:26 Hgb 12.3 L 9.6 L D (13.5-17.5) GM/DL Hct 36.6 L 29.3 L D (41-53) % Orthopedic Assessment and Plan (1) Primary osteoarthritis of right hip Status: Acute Assessment and Plan: Will begin Lovenox bridge and Coumadin protocol for VTE prophylaxis due to his hx of malignancy. SCD's for added protection. PT/OT services to improve independent function. Discharge Planning per Case Management. - Anticoagulation Therapy Anticoagulation: ASA 81 mg PO BID x6 weeks, Coumadin therapy with Lovenox bridge x30 days Hospital Course Summary Disclaimer: The visit summary below is not to be considered part of the above Progress Note.
--- NOTE | 2017-10-24 08:14 | Pharmacy Consult ---
Pharmacy Consult-Warfarin - Consult Information Order noted by Eagle AUSTIN to begin warfarin therapy on Mr Yates, who is 67 years old and weighs 104.6kg. He is a postop orthopedic patient who has not been on warfarin. Will begin with a 6mg dose po today, then continue to monitor. He is on lovenox until the INR is therapeutic. Goal INR is 1.5-2.5. Thank you.
[2017-10-24] MEDS: DOCUSATE SODIUM 100 MG CAPSULE PO SCH (08:48)
[2017-10-24] MEDS: ACETAMINOPHEN 325 MG TABLET PO SCH ×2 (08:49→12:16)
[2017-10-24] MEDS: MOMETASONE 0.1% TP SCH (08:54)
[2017-10-24] MEDS ORDERED: ALBUTEROL 2.5mg/3ml (0.083%) NEB AEROSOL SCH (09:00)
[2017-10-24] MEDS ORDERED: POLYETHYL GLYCOL 3350 17gm PACKET PO SCH (09:00)
[2017-10-24] MEDS ORDERED: FEXOFENADINE 60 MG TABLET PO SCH (09:00)
[2017-10-24] MEDS ORDERED: ENOXAPARIN 40 MG/0.4 ML INJECTION SQ SCH (09:00)
[2017-10-24] MEDS: LISINOPRIL 20 MG TABLET PO SCH (09:08)
[2017-10-24] MEDS: AMLODIPINE 5 MG TABLET PO SCH (09:08)
[2017-10-24] MEDS ORDERED: PNEUMOCOCCAL 13 VACCINE 0.5ml INJECTION IM ONE (11:00)
[2017-10-24] MEDS ORDERED: INFLUENZA VAC High Dose 2017-18 (Fluzone HD*) (>=65yo) 0.5ml IM ONE (11:00)
[2017-10-24] MEDS ORDERED: WARFARIN 6 MG TABLET PO SCH (12:00)
--- NOTE | 2017-10-24 13:59 | Discharge Summary ---
Orthopedic Discharge Info Date of admission: 10/23/17 10:11 Primary care physician: Huang Vides DO Attending Physician: Arsalan Culver MD Consults: 10/23/17 10:15 Consult to Anesthesiology [CONS] Routine Reason For Exam: Preoperative Assessment 10/23/17 16:11 Case Management Consult [CONS] Routine Reason For Exam: Discharge Planning DME-Walker [CONS] Routine Height: 6 ft 2 in Weight: 225 lb 8.526 oz Total Joint Outpatient Therapy [CONS] Routine Comment: Remove dressing in 2 weeks 10/24/17 Pharmacy Consult [CONS] Routine Pharmacy Consult: Coumadin/Warfarin Comment: Please begin Coumadin protocol. - Discharge Diagnosis (1) Primary osteoarthritis of right hip Status: Acute - Procedures Procedures: Procedures Excision of Left Knee Bursa and Ligament, Open Approach (06/06/17) - Laboratory Result Diagrams: 10/24/17 04:26 10/24/17 04:26 Laboratory: Abnormal lab results 10/24/17 10/24/17 Range/Units 04:26 04:26 Hgb 9.6 L D (13.5-17.5) GM/DL Hct 29.3 L D (41-53) % Creatinine 0.7 L (0.8-1.5) MG/DL Glucose 157 H (75-110) MG/DL H & H 10/23/17 10/24/17 Range/Units 10:33 04:26 Hgb 12.3 L 9.6 L D (13.5-17.5) GM/DL Hct 36.6 L 29.3 L D (41-53) % Orthopedic Discharge HPI - HPI Elements left anterior knee Pain: sharp Onset: sudden Severity: severe Duration: 12-24 hours How Often Does Pain Occur: constant Previous Surgery: No Previous Injury: No Aggrevated by: walking Associated Symptoms: swelling - HPI Comments This patient was admitted for elective surgical tx of end stage degenerative joint disease that failed to respond to conservative treatment. Further details of this is found in the admission H&P. Orthopedic Hospital Course Hospital course: 10/24/17 13:59 After appropriate preoperative clearance and signing of operative consent, the patient was given IV antibiotics, according to orthopedic protocol. The patient was taken to the operating room and underwent elective joint arthroplasty. Following surgery, antibiotics were discontinued less than 24 hours according to joint protocol. Appropriate anticoagulants were initiated and SCDs added for DVT prevention. The dressing was clean, dry, and intact. Pain control was obtained via multimodal approach. Bowel motivation addressed with scheduled and PRN medications. Early mobilization was initiated through PT services. Discharge arrangements made by a collaborative effort between the patient and Case Management. Follow-up is scheduled in 2-3 weeks. Discharge instructions given by orthopedic providers and nursing staff at discharge. Discharge condition was good. Ongoing care required?: No Discharge Plan - Med Rec/Dispo Referrals/Follow Up: Eagle Hardwick PA [Physician Burring Machine Operator] - 11/12/17 1:00 pm [place] [facility] [place] Prescriptions: New Enoxaparin Sodium [Lovenox] 40 mg SQ DAILY #5 syringe PEG 3350 17gm PACKET [Miralax] 17 gm PO DAILY packet Warfarin [Coumadin] 2.5 mg PO NOON #60 tab Acetaminophen [Tylenol] 650 mg PO QID tab Oxycodone *IR* [Roxicodone *Ir*] 5 - 15 mg PO Q3H PRN #60 tab PRN Reason: Breakthrough Pain Continue Glucosa Sapp 2Kcl/Chondroitin Sapp [Glucosamine Chondroitin Caplet] 1 tab PO HS Mometasone 0.1% Cream [Elocon 0.1% Cream] 1 applicatio TP BID Albuterol HFA Inhaler [Ventolin Hfa 90 mcg/actuation] 1 - 2 puff ORAL INH Q3- 4HR PRN PRN Reason: Wheezing Potassium Chloride [Klor-Con M20] 20 meq PO DAILY HydrOXYzine [Atarax] 25 mg PO Q8HPRN PRN PRN Reason: Itching Cyclobenzaprine HCl 1 tab PO BID PRN PRN Reason: Muscle Spasm Calcium 250 + D [Os Jhonatan + D] 1 tab PO DAILY Omeprazole [Prilosec] 20 mg PO ACB Lisinopril [Prinivil] 20 mg PO HS Amlodipine [Norvasc] 5 mg PO HS fexofenadine 60 mg tablet 60 mg PO DAILY tab albuterol sulfate 1.25 mg/3 mL solution for nebulization 1.25 mg INH DAILY ml Seroquel (quetiapine) 25 mg tablet 25 mg PO HS tab iron polysacch cplx 150 mg iron-vit B12 25 mcg-folic acid 1 mg capsule 1 cap PO DAILY cap Discontinued [place] 10 mg-acetaminophen 325 mg tablet 1 tab PO Q8H PRN PRN Reason: Pain - Disposition [facility] - Dismissal Complete Discharge Instructions are:: Complete
[2017-10-24 15:19] VITALS: BP 151/68; PULSE 92; RESP 16; TEMP 96.5; O2SAT 100
[2017-10-24] MEDS ORDERED: SENNOSIDES 8.6 MG TABLET PO PRN (15:49)
[2017-10-24] MEDS ORDERED: PNEUMOCOCCAL VAC ADMIN CHARGE INJ ONE (16:24)
[2017-10-24] MEDS ORDERED: INFLUENZA VAC. INJ. ADMIN CHARGE INJ ONE (16:24)
[2017-10-24] MEDS ORDERED: LISINOPRIL 20 MG TABLET PO SCH (21:00)
[2017-10-24] MEDS ORDERED: AMLODIPINE 5 MG TABLET PO SCH (21:00)
[2017-10-25] MEDS ORDERED: BISACODYL 10 MG SUPPOSITORY RECTALLY SCH (20:00)
== END 2017-10-24 16:25 | disposition home health service (06) | DRG 470 ==
LOC: SRG 10:11
PROVIDERS: ADMIT Orthopaedic Surgery; ATTEND Orthopaedic Surgery

== ENCOUNTER 2018-01-20 05:31 | Inpatient (IN) ==
--- NOTE | 2018-01-15 16:15 | History and Physical ---
CHIEF COMPLAINT Left hip pain. HISTORY OF PRESENT ILLNESS 67-year-old gentleman being admitted for elective left total hip replacement. He has had pain in this hip for many years that is getting progressively worse. He has a difficult time sleeping and is unable to walk for any extended distances. In general he is becoming disabled as a result of his hip pain. He has tried antiinflammatory medications, modification of activities, and using external support but continues to have severe debilitating pain. X-rays show advanced arthritis with complete loss of the joint space including subchondral sclerosis and osteophyte formation. Due to his limited response to conservative measures and his increasing debility, he is being admitted for an elective left total hip replacement. PAST MEDICAL HISTORY, ALLERGIES AND MEDICATIONS, SURGICAL HISTORY, FAMILY AND SOCIAL HISTORY All updated and reviewed in the EMR. A copy of the latest exam is included in the chart. Please refer to that for details. REVIEW OF SYSTEMS There was no fever, chills, skin infections, rashes, numbness of extremity, or seizures. PHYSICAL EXAMINATION GENERAL: This is a well-developed, well-nourished 67-year-old gentleman. PSYCHOLOGICALLY: Alert and oriented with a good mood and affect. SKIN: His skin shows no rashes, abnormal lesions, erythema, warmth or other changes. CARDIOVASCULAR: He has good pulses involving the lower extremity. No calf tenderness. NEUROLOGICALLY: Intact with no deficits. MUSCULOSKELETAL: Exam shows gait to be markedly impaired as a result of pain. He has decreased flexion as well as rotational movements of the hip. He has no tenderness to palpation. Strength is adequate. IMPRESSION Primary degenerative arthritis of the left hip. PLAN Due to the severity of symptoms as well as x-ray findings and failure of nonsurgical treatment, Dr. Culver has recommended that he undergo a left total hip replacement. The surgical procedure, risks versus benefits, alternative treatments and possible complications of surgery have all been explained to him. Questions have been answered to the patient's satisfaction. Will plan to proceed with an elective left total hip replacement 01/20/2018. ERICA
[2018-01-20 05:50] VITALS: BMI 29.7
[2018-01-20] MEDS ORDERED: ONDANSETRON 4 MG/2 ML INJECTION IVP ONE (06:00)
[2018-01-20] MEDS ORDERED: MELOXICAM 15 MG TABLET PO ONE (06:00)
[2018-01-20] MEDS ORDERED: ACETAMINOPHEN 500 MG TABLET PO ONE (06:00)
[2018-01-20] MEDS ORDERED: DEXAMETHASONE 4 MG/ML INJECTION IVP ONE (06:00)
[2018-01-20] MEDS ORDERED: METOCLOPRAMIDE 10mg/2ml INJECTION IVP ONE (06:00)
[2018-01-20] MEDS ORDERED: FAMOTIDINE PB 20 MG/50 ML BAG IV ONE (06:00)
[2018-01-20] MEDS ORDERED: LIDOCAINE 1% (10mg/ml) 2mL INJ PF SDV ID ONE (06:00)
[2018-01-20] MEDS: NOZIN NASAL SWAB NAS SCH ×6 (06:20→21:03)
[2018-01-20] MEDS ORDERED: VANCOMYCIN 1,000 MG INJECTION ONE (06:21)
[2018-01-20] MEDS ORDERED: VANCOMYCIN 1,000 MG INJECTION IAR ONE (07:04)
[2018-01-20] MEDS ORDERED: PROPOFOL 500 MG/50 ML VIAL ONE ×2 (07:06→08:17)
--- NOTE | 2018-01-20 07:12 | Anesthesia Preoperative Report ---
Anesthesia Preoperative Record - Date and Time Date: 01/20/18 Preoperative Diagnosis: Lt SHANTA M16.12 Proposed Procedure: left SHANTA NPO Since Date: 01/20/18 NPO Since Time: 05:00 Allergies/Adverse Reactions: Allergies Allergy/AdvReac Type Severity Reaction Status Date / Time No Known Drug Allergies Allergy Unknown Verified 01/05/18 06:41 - Vital Signs Vital Signs: Temperature 97.7 F 01/20/18 05:49 Pulse Rate 87 01/20/18 06:35 Respiratory Rate 14 01/20/18 05:49 Blood Pressure 141/65 H 01/20/18 06:35 Pulse Oximetry 93 01/20/18 05:49 Height and Weight: Height 1.88 m Weight 105.3 kg Body Mass Index 29.7 - Medications Inpatient Medications: Current Medications Cefazolin Sodium (Kefzol) 2 g IVP PREOP ONE Stop: 01/20/18 07:31 Epinephrine HCl 0.25 mg/Bupivacaine HCl 30 ml/Ketorolac Tromethamine 60 mg/ Sodium Chloride 62.25 mls @ 0 mls/hr OPSITE INTRAOP ONE; Per Protocol PRN Reason: Protocol Stop: 01/20/18 08:01 Lactated Ringer's (Lactated Ringers) 1,000 mls @ 50 mls/hr IV .Q20H TC Last Admin: 01/20/18 06:15 Dose: 50 mls/hr Isopropyl Alcohol (Nozin Nasal Swab) 1 each BRO Q1M TC Stop: 01/20/18 15:33 Last Admin: 01/20/18 06:32 Dose: 1 each Sodium Chloride (Iv Flush) 10 - 80 ml IV PRN PRN PRN Reason: Flushing Tranexamic Acid (Cyklokapron) 1,000 mg TOP INTRAOP ONE Stop: 01/20/18 15:18 Vancomycin HCl (Vancocin) 1,000 mg IAR O ONE Stop: 01/20/18 07:05 Home Medications: Home Medications Medication Instructions Recorded Confirmed Type Albuterol HFA Inhaler [Ventolin 1 - 2 puff ORAL INH Q3-4HR PRN 06/03/17 History Hfa 90 mcg/actuation] Glucosa Sapp 2Kcl/Chondroitin Sapp 1 tab PO HS 06/03/17 01/20/18 History [Glucosamine Chondroitin Caplet] Mometasone 0.1% Cream [Elocon 0.1% 1 applicatio TP BID 06/03/17 01/20/18 History Cream] albuterol sulfate 1.25 mg/3 mL 1.25 mg INH DAILY ml 08/04/17 01/20/18 History solution for nebulization fexofenadine 60 mg tablet 60 mg PO DAILY tab 08/04/17 01/20/18 History iron polysacch cplx 150 mg 1 cap PO DAILY cap 08/04/17 01/20/18 History iron-vit B12 25 mcg-folic acid 1 mg capsule Amlodipine [Norvasc] 5 mg PO HS 10/17/17 01/20/18 History Cyclobenzaprine HCl 1 tab PO PRN PRN 10/17/17 01/20/18 History HydrOXYzine [Atarax] 25 mg PO BID PRN 10/17/17 01/20/18 History Lisinopril [Prinivil] 20 mg PO HS 10/17/17 01/20/18 History Omeprazole [Prilosec] 20 mg PO ACB 10/17/17 01/20/18 History Potassium Chloride [Klor-Con M20] 40 meq PO DAILY 10/17/17 01/20/18 History ergocalciferol (vitamin D2) 50,000 50,000 unit PO DAILY #1 cap 01/16/18 Rx unit capsule Hydrocodone/APAP 7.5/325 [Stephan 1 - 2 tab PO PRN PRN 01/20/18 01/20/18 History 7.5/325] Is Patient on Beta Bee?: No - Medical History Respiratory: Reports: Chronic Obstructive Pulmonary Disease (COPD), Sleep Apnea , Other (Lung Ca- 3 liters at all times at home) Cardiovascular: Reports: Hypertension DENIES: Abnormal EKG, Congestive Heart Failure, Coronary Artery Disease, Heart Murmur Gastrointestional: Reports: Gastroesophageal Reflux Disease (well controlled), Gastrointestinal Bleeding, Other (crohns) Neuro/Musculoskeletal: Reports: HX.MS.OSAR, Back Problems (5 level lumbar fusion. Cervical paresthesia to Right shoulder with flexion), Other (lumbar spinal stim; removal stimulator) Denies: Cerebrovascular Accident Other History: Reports: Blood Transfusions, Chemotherapy (2016), Cancer ( Prostate CA-surg; LUNG CANCER with bone mets), Other (radiation in 1999, 2016) DENIES: Anesthesia Reactions - Surgical History Respiratory Surgery/Treatments: Reports: CPAP Use (HASNT USED IN YEARS), Oxygen Administration (O2 3-4L AT HOME) GI Surgery/Treatments: Reports: Colon Resection, Colonoscopy, Other (INTESTINE SURGERY) Surgery/Treatment: REPORT: Prostatectomy, Other (PROSTATE CA) Musculoskeletal Surgery/Tx: Reports: Total Hip Replacement (RT SHANTA), Other ( RIGHT KNEE DRAIN) Hx Family Anesthesia Reaction: No - Social History Smoking Status: Former smoker Hx Chewing Tobacco Use: No Substance Use Type: does not use Alcohol Intake Frequency: does not drink - Pertinent Findings Laboratory: CBC and BMP 01/20/18 06:01 EKG: Sinus Rhythm - Physical Exam Respiratory Exam: Present: lungs clear Cardiovascular Exam: Present: regular rate and rhythm, systolic murmur - Airway Assessment Mallampati Score: II TMD: 3 Fingerbreadths Neck Extension: good Teeth: upper dentures Overall Assessment: no airway concerns - ASA ASA Score: 3 - Plan Regional/Trunk Block: Spinal (vs General) - Discussion Discussion: Discussed risks/options/alternatives of anesthesia and questions answered. Patient consents. Nursing pain assessment noted. Attestation Statement: Prior to the delivery of any anesthetic medication, I examined the patient, developed the plan, obtained the patient's consent and discussed the risk and benefits of the procedure with the patient/guardian. - Additional Information Seen by Anesthesia: Yes
[2018-01-20] MEDS ORDERED: MIDAZOLAM 2mg/2ml INJECTION ONE (07:29)
[2018-01-20] MEDS ORDERED: CEFAZOLIN 1 G INJECTION IVP ONE (07:30)
[2018-01-20] MEDS ORDERED: BUPIVACAINE 0.75%/DEXTROSE 8.5% SPINAL 2 ML AMPULE IJ ONE (07:31)
[2018-01-20] MEDS ORDERED: LIDOCAINE 2% (100mg/5mL) PF 5ml vl ONE (07:31)
[2018-01-20] MEDS ORDERED: EPINEPHrine PF 0.25 MG, BUPIVACAINE 0.25% PF 30 ML, KETOROLAC INJ 60 MG in NS 30 ML OPSITE ONE (08:00)
[2018-01-20] MEDS ORDERED: PROPOFOL 20 ML ONE ×3 (09:05→09:36)
--- NOTE | 2018-01-20 09:21 | Operative Note ---
- Procedure Preoperative Diagnosis: Left hip primary degenerative joint disease Postoperative Diagnosis: Same as preoperative diagnosis. Surgeon: Tanika Culver MD Nursing Executive: Eagle Hardwick Complications: None. Anesthesia: Spinal. Estimated Blood Loss: See Anesthesia Record. Fluids: Please see Anesthesia Record. Description of Procedure: Mr. Yates and his left hip were identified and marked in the preoperative holding area. He was brought back to the operating suite and spinal anesthetic was administered. He was then placed in a lateral decubitus position with his left hip up. The left lower extremity was prepped and draped in my normal sterile fashion. Timeout was performed. The [employer] robotic arm was used to assist with the surgery. A pelvic array was placed into the iliac crest through three small incisions. A direct superior approach was utilized. An approximately 12 cm incision was made in the skin and dissection carried down to the muscle fascia which was then split in line with skin incision. The short external rotators were identified and tagged and detached. A capsulotomy was performed and the hip dislocated. A femoral neck osteotomy was performed at the pre-templated level measuring down from the femoral head 56mm. The head was removed and acetabulum exposed. Labrum was removed. The acetabulum was then registered with the robot. The robotic arm was then used to ream with a 61 reamer. The robot then was again used to place a 62 Trident cup in 40 of tilt and 25 of anteversion. A liner was then placed. The proximal femur was exposed and prepared with a cookie cutter followed by reaming and broaching to a size 7. We trialed with a 0 head. This was good but he had a good shuck. After thorough irrigation a final Accolade 2 size 7 stem with 127 neck was placed. We then re-trialed with a +2.5 head and Leg length and offset were checked with the robot and were good. A final +2.5 ceramic 36 mm head was placed and the hip reduced. Betadine solution was used to irrigate throughout the case. It was followed by normal saline irrigation. Joint cocktail was injected throughout soft tissue. The capsulotomy was repaired with Ethibond. Short external rotators were also repaired with Ethibond. 1 g of vancomycin powder was placed into the wound. The muscle fascia was then repaired with #1 Vicryl. I then left my obstetric assistant to close the subcutaneous tissue with 2-0 Vicryl followed by running 4-0 Monocryl skin followed by Dermabond and a sterile dressing. The patient with any placed back into supine position and taken to recovery room in the care of anesthesia.
--- NOTE | 2018-01-20 10:31 | XRay Report ---
Indication: postoperative image PROCEDURE: XR pelvis w/ 1 view LT hip: Encounter: Initial Comparison: December 29, 2017 Findings: Postoperative changes of left total hip replacement are seen. There is expected postoperative subcutaneous gas. No evidence of hardware failure or acute fracture. No retained radiopaque surgical instruments or sponges seen. Existing right total hip prosthesis again noted. Multiple pelvic surgical clips. Impression: New left total hip prosthesis without evidence of immediate complication. .
--- NOTE | 2018-01-20 10:36 | Anesthesia Postoperative Note ---
- Date and Time Date: 01/20/18 Time: 10:35 - Status Patient Participated in Evaluation: Patient Participated in Person Vital Signs: Temperature 97.2 F 01/20/18 10:16 Pulse Rate 63 01/20/18 10:15 Respiratory Rate 19 01/20/18 10:15 Blood Pressure 134/61 01/20/18 10:15 Pulse Oximetry 98 01/20/18 10:15 Respiratory Function: Airway Patent Cardiovascular Function: Regular Pulse EKG: Sinus Rhythm Mental Status: Alert and Oriented Pain Intensity: 0 Hydration: Taking PO Fluids Complications During Recover: None Apparent - Follow-Up Instructions Instructions: Per Surgeon
[2018-01-20] MEDS ORDERED: LORazepam 1 MG TABLET PO PRN (10:47)
[2018-01-20] MEDS ORDERED: NOZIN NASAL SWAB NAS ONE (10:47)
[2018-01-20] MEDS ORDERED: ONDANSETRON 4 MG/2 ML INJECTION IVP PRN (10:47)
[2018-01-20] MEDS ORDERED: DiphenhydrAMINE 25 MG CAPSULE PO PRN (10:47)
[2018-01-20] MEDS ORDERED: DiphenhydrAMINE 50 MG/ML INJECTION IVP PRN (10:47)
[2018-01-20] MEDS ORDERED: CYCLOBENZAPRINE 10 MG TABLET PO PRN (10:47)
[2018-01-20] MEDS: NS 1,000 ML IV SCH ×2 (10:58→21:32)
[2018-01-20] MEDS: MOMETASONE 0.1% TP SCH ×2 (11:46→20:03)
[2018-01-20] MEDS: POLYETHYL GLYCOL 3350 17gm PACKET PO SCH (11:46)
[2018-01-20] MEDS: NIFEREX FORTE 150 CAPSULE PO SCH (11:47)
[2018-01-20] MEDS: DOCUSATE SODIUM 100 MG CAPSULE PO SCH ×2 (11:47→20:01)
[2018-01-20] MEDS: NAPROXEN 220 MG TABLET PO SCH ×2 (11:47→20:01)
[2018-01-20] MEDS: FEXOFENADINE 60 MG TABLET PO SCH (11:47)
[2018-01-20] MEDS: ACETAMINOPHEN 325 MG TABLET PO SCH ×4 (11:47→20:01)
[2018-01-20] MEDS ORDERED: LR 1,000 ML IV SCH (14:00)
[2018-01-20] MEDS: Oxycodone *IR* 5 MG TABLET PO PRN ×3 (14:18→21:32)
[2018-01-20] MEDS ORDERED: TRANEXAMIC ACID 1,000 MG/10 ML VIAL TOP ONE (15:17)
[2018-01-20] MEDS ORDERED: SALINE FLUSH 10ml SYRINGE IV PRN (15:17)
[2018-01-20] MEDS: CEFAZOLIN 2 G in NS 100 ML IV SCH ×2 (15:45→23:19)
[2018-01-20] MEDS: AMLODIPINE 5 MG TABLET PO SCH (20:02)
[2018-01-20] MEDS: SENNOSIDES 8.6 MG TABLET PO SCH (20:02)
[2018-01-20] MEDS: ALBUTEROL 2.5mg/3ml (0.083%) NEB AEROSOL SCH (20:02)
[2018-01-20] MEDS: LISINOPRIL 20 MG TABLET PO SCH (20:02)
[2018-01-20] MEDS ORDERED: ASPIRIN *EC* 81 MG TABLET PO SCH (21:00)
[2018-01-21] MEDS: NS 1,000 ML IV SCH ×3 (06:33→23:56)
[2018-01-21] MEDS: OMEPRAZOLE 20 MG CAPSULE PO SCH (06:34)
[2018-01-21] MEDS: NOZIN NASAL SWAB NAS SCH ×4 (06:34→21:36)
[2018-01-21] MEDS ORDERED: SENNOSIDES 8.6 MG TABLET PO PRN (07:32)
--- NOTE | 2018-01-21 07:53 | Orthopedic Progress Note ---
Date: Date: 01/21/18 Time: 743 Subjective/Severity of Illness: Mr Yates is alert and appears comfortable. Denies much pain at all. He is on 3L of oxygen this AM but does not feel SOA. He uses oxygen at night at home and was told to use it during the day, but he has not been doing that. He reports a cough for the last month and has coughed a little overnight, but states it is about normal. He is afebrile. No CP. Denies feeling lightheaded or dizzy. He has been up with good tolerance. Dressing is dry. Hgb dropped from 10.7 to 8.4 , (this is similar to his last hip surgery when his hgb dropped 2.7gm the first day). Orthopedic Objective PO Vital signs: Temperature 98.1 F 01/21/18 07:16 Pulse Rate 75 01/21/18 07:16 Respiratory Rate 18 01/21/18 07:16 Blood Pressure 162/80 H 01/21/18 07:16 Pulse Oximetry 99 01/21/18 07:16 Height and Weight: Height 6 ft 2 in Weight 232 lb 9.403 oz Body Mass Index 29.7 - Constitutional General Appearance: Present: alert, orientated x3, cooperative, no acute distress - Respiratory Exam Present: non-labored (He is on oxygen.) - Cardiovascular Exam Present: pedal pulses intact - Extremities Exam Extremities: Present: pulses intact. Absent: calf tenderness - Hip Exam Hip Exam: Present: alignment normal - Surgical Site Incision: Mepilex dressing intact, no drainage - Integumentary Exam Present: pink, warm, dry - Neurological Exam Present: intact to light touch, no deficits - Psychiatric Exam Present: alert, normal affect - Labs Result Diagrams: 01/21/18 04:09 01/21/18 04:08 Abnormal lab results 01/21/18 01/21/18 Range/Units 04:08 04:09 Hgb 8.4 L D (13.5-17.5) GM/DL Hct 26.1 L D (41-53) % Creatinine 0.7 L (0.8-1.5) mg/dL Glucose 125 H (75-110) MG/DL Calcium 8.2 L (8.4-10.2) MG/DL H & H 03/06/18 03/07/18 Range/Units 06:01 04:09 Hgb 10.7 L 8.4 L D (13.5-17.5) GM/DL Hct 32.2 L 26.1 L D (41-53) % Orthopedic Assessment and Plan (1) Primary osteoarthritis of left hip Status: Acute Assessment and Plan: Lovenox bridge with Lovenox protocol for VTE prophylaxis due to hx of malignancy. SCD's and early mobilization for added protection. Hgb drop is significant but very similar to the drop after his last SHANTA. Will monitor and recheck labs. PT/OT services to improve independent function. Pt lives alone at home and will need to be independent before discharge. Discharge Planning per Case Management. (2) Prostate cancer metastatic to bone Status: Chronic - Anticoagulation Therapy Anticoagulation: Coumadin therapy with Lovenox bridge x30 days Hospital Course Summary Disclaimer: The visit summary below is not to be considered part of the above Progress Note.
[2018-01-21] MEDS ORDERED: WARFARIN - PHARMACY CONSULT MC ONE (08:02)
[2018-01-21] MEDS: FEXOFENADINE 60 MG TABLET PO SCH (08:45)
[2018-01-21] MEDS: DOCUSATE SODIUM 100 MG CAPSULE PO SCH ×2 (08:45→20:00)
[2018-01-21] MEDS: ACETAMINOPHEN 325 MG TABLET PO SCH ×4 (08:45→20:00)
[2018-01-21] MEDS: NAPROXEN 220 MG TABLET PO SCH ×2 (08:45→17:04)
[2018-01-21] MEDS: MOMETASONE 0.1% TP SCH ×2 (08:46→20:01)
[2018-01-21] MEDS: NIFEREX FORTE 150 CAPSULE PO SCH (08:46)
[2018-01-21] MEDS: POLYETHYL GLYCOL 3350 17gm PACKET PO SCH (08:46)
[2018-01-21] MEDS: ENOXAPARIN 40 MG/0.4 ML INJECTION SQ SCH (09:45)
--- NOTE | 2018-01-21 10:01 | Pharmacy Consult ---
Pharmacy Consult-Warfarin - Consult Information COUMADIN INITIAL CONSULT: Dx: Degenerative Joint Disease Left Hip Surgery. Baseline INR = . WB is a 67 yr old male patient with a history of malignancy (lung cancer) who has just had hip surgery. He is being bridged with Lovenox 40 mg sq daily until his warfarin is therapeutic. He was not on warfarin at home. DATE INR DOSE 01/21/18 5 MG Will give Warfarin 5 mg today. Pharmacy will monitor the INR and adjust the warfarin dose as needed. Thank you. Alexandria Pate, PharmD
[2018-01-21] MEDS: ALBUTEROL 2.5mg/3ml (0.083%) NEB AEROSOL SCH (10:27)
[2018-01-21] MEDS ORDERED: WARFARIN 5 MG TABLET PO SCH (12:00)
[2018-01-21] MEDS: AMLODIPINE 5 MG TABLET PO SCH (20:00)
[2018-01-21] MEDS: SENNOSIDES 8.6 MG TABLET PO SCH (20:00)
[2018-01-21] MEDS: LISINOPRIL 20 MG TABLET PO SCH (20:00)
[2018-01-22] MEDS: Oxycodone *IR* 5 MG TABLET PO PRN ×3 (03:15→15:18)
[2018-01-22] MEDS: OMEPRAZOLE 20 MG CAPSULE PO SCH (05:51)
[2018-01-22] MEDS: NOZIN NASAL SWAB NAS SCH ×2 (05:51→14:30)
--- NOTE | 2018-01-22 07:16 | Pharmacy Consult ---
Pharmacy Consult-Warfarin - Laboratory Information 01/22/18 04:03 INR 1.19 - Consult Information Target INR is 1.5-2.5. Will give warfarin 5mg po today at noon. Thank you.
--- NOTE | 2018-01-22 07:37 | Orthopedic Progress Note ---
Date: Date: 01/22/18 Time: 733 Subjective/Severity of Illness: Mr Yates is alert and appears comfortable. Denies much pain at all. He is on 3L of oxygen this AM but does not feel SOA. He uses oxygen at night at home and was told to use it during the day, but he has not been doing that. He is afebrile. No CP. Denies feeling lightheaded or dizzy. He has been up with good tolerance. Dressing is dry. Hgb dropped from 10.7 to 8.4 and is 8.5 today, (this is similar to his last hip surgery when his hgb dropped 2.7gm the first day). Orthopedic Objective PO Vital signs: Temperature 97.9 F 01/22/18 04:00 Pulse Rate 73 01/22/18 04:00 Respiratory Rate 16 01/22/18 04:00 Blood Pressure 155/75 H 01/22/18 04:00 Pulse Oximetry 96 01/22/18 04:00 Height and Weight: Height 6 ft 2 in Weight 232 lb 9.403 oz Body Mass Index 29.7 - Constitutional General Appearance: Present: alert, orientated x3, cooperative, no acute distress - Respiratory Exam Present: non-labored (He is on oxygen.) - Cardiovascular Exam Present: pedal pulses intact - Extremities Exam Extremities: Present: pulses intact. Absent: calf tenderness - Hip Exam Hip Exam: Present: alignment normal - Surgical Site Incision: Mepilex dressing intact, no drainage - Integumentary Exam Present: pink, warm, dry - Neurological Exam Present: intact to light touch, no deficits - Psychiatric Exam Present: alert, normal affect - Labs Result Diagrams: 01/22/18 04:03 01/22/18 04:03 Abnormal lab results 01/22/18 01/22/18 Range/Units 04:03 04:03 Hgb 8.5 L (13.5-17.5) GM/DL Hct 26.6 L (41-53) % Creatinine 0.6 L (0.8-1.5) mg/dL Glucose 129 H (75-110) MG/DL H & H 01/20/18 01/21/18 01/22/18 Range/Units 06:01 04:09 04:03 Hgb 10.7 L 8.4 L D 8.5 L (13.5-17.5) GM/DL Hct 32.2 L 26.1 L D 26.6 L (41-53) % Coagulation 01/22/18 Range/Units 04:03 INR 1.19 (0.99-1.21) Orthopedic Assessment and Plan (1) Prostate cancer metastatic to bone Status: Chronic (2) Primary osteoarthritis of left hip Status: Acute Assessment and Plan: Lovenox bridge with Lovenox protocol for VTE prophylaxis due to hx of malignancy. SCD's and early mobilization for added protection. Hgb drop is significant but very similar to the drop after his last SHANTA. Will monitor and recheck labs. PT/OT services to improve independent function. Pt lives alone at home and will need to be independent before discharge. Discharge Planning per Case Management. Re evaluate this PM for discharge. Hospital Course Summary Disclaimer: The visit summary below is not to be considered part of the above Progress Note.
[2018-01-22] MEDS: NAPROXEN 220 MG TABLET PO SCH (08:56)
[2018-01-22] MEDS: NIFEREX FORTE 150 CAPSULE PO SCH (08:57)
[2018-01-22] MEDS: DOCUSATE SODIUM 100 MG CAPSULE PO SCH (08:57)
[2018-01-22] MEDS: FEXOFENADINE 60 MG TABLET PO SCH (08:57)
[2018-01-22] MEDS: ACETAMINOPHEN 325 MG TABLET PO SCH ×2 (08:57→14:30)
[2018-01-22] MEDS: POLYETHYL GLYCOL 3350 17gm PACKET PO SCH (08:58)
[2018-01-22] MEDS: ENOXAPARIN 40 MG/0.4 ML INJECTION SQ SCH (08:58)
[2018-01-22] MEDS: MOMETASONE 0.1% TP SCH (08:58)
[2018-01-22] MEDS ORDERED: ALBUTEROL 2.5mg/3ml (0.083%) NEB AEROSOL SCH (09:00)
[2018-01-22] MEDS ORDERED: FALL RISK - PHARMACY CONSULT MC ONE (10:34)
[2018-01-22] MEDS ORDERED: SCOPOLAMINE 1mg/3 days PATCH (Eq. 1.5 Patch) TD ONE (11:22)
[2018-01-22] MEDS ORDERED: WARFARIN 5 MG TABLET PO SCH (12:00)
[2018-01-22 14:01] VITALS: BP 157/83; PULSE 79; RESP 16; TEMP 97.8; O2SAT 100
--- NOTE | 2018-01-22 14:13 | Discharge Summary ---
Orthopedic Discharge Info Date of admission: 01/20/18 05:31 Anticipated date of discharge: 01/22/18 Primary care physician: DO Huang Baptiste DO Attending Physician: Arsalan Culver MD Consults: 01/20/18 05:36 Consult to Anesthesiology [CONS] Routine Reason For Exam: Preoperative Assessment 01/20/18 10:47 Case Management Consult [CONS] Routine Reason For Exam: Discharge Planning DME-Walker [CONS] Routine Height: 6 ft 2 in Weight: 232 lb 2.348 oz Total Joint Outpatient Therapy [CONS] Routine Comment: Remove dressing in 2 weeks - Discharge Diagnosis (1) Primary osteoarthritis of left hip Status: Acute (2) Prostate cancer metastatic to bone Status: Chronic - Procedures Procedures: Procedures Replacement of Right Hip Joint with Ceramic on Polyethylene Synthetic Substitute , Uncemented, Open Approach (10/23/17) Robotic Assisted Procedure of Lower Extremity, Open Approach (10/23/17) - Laboratory Result Diagrams: 01/22/18 04:03 01/22/18 04:03 Laboratory: Abnormal lab results 01/22/18 01/22/18 Range/Units 04:03 04:03 Hgb 8.5 L (13.5-17.5) GM/DL Hct 26.6 L (41-53) % Creatinine 0.6 L (0.8-1.5) mg/dL Glucose 129 H (75-110) MG/DL H & H 01/20/18 01/21/18 01/22/18 Range/Units 06:01 04:09 04:03 Hgb 10.7 L 8.4 L D 8.5 L (13.5-17.5) GM/DL Hct 32.2 L 26.1 L D 26.6 L (41-53) % Coagulation 01/22/18 Range/Units 04:03 INR 1.19 (0.99-1.21) Orthopedic Discharge HPI - HPI Elements left anterior knee Pain: sharp Onset: sudden Severity: severe Duration: 12-24 hours How Often Does Pain Occur: constant Previous Surgery: No Previous Injury: No Aggrevated by: walking Associated Symptoms: swelling - HPI Comments This patient was admitted for elective surgical tx of end stage degenerative joint disease that failed to respond to conservative treatment. Further details of this is found in the admission H&P. Orthopedic Hospital Course Hospital course: 01/22/18 14:06 After appropriate preoperative clearance and signing of operative consent, the patient was given IV antibiotics, according to orthopedic protocol. The patient was taken to the operating room and underwent elective total hip arthroplasty. Following surgery, antibiotics were discontinued less than 24 hours according to joint protocol. Lovenox bridge and Warfarin were initiated and SCDs added for DVT prevention. He will take Lovenox until the INR is > 1.5 and remain on Warfarin for 30 days. INRs will be monitored twice a week and dosing adjustment made. The dressing was clean, dry, and intact. Pain control was obtained via multimodal approach. Bowel motivation addressed with scheduled and PRN medications. Early mobilization was initiated through PT services. Discharge arrangements made by a collaborative effort between the patient and Case Management. Plan is to go to IRU for continued rehab. He was dizzy and hgb showed a significant drop after surgery. His hgb dropped 2.3 gm down to 8.4 but was stable at that level. His BP and pulse were normal. The dizziness was treated with Scopolamine patch and improved his symptoms. He was instructed to take the patch off in 2 days or sooner if he was feeling better. PO fluids were encouraged and he will use I.S. every 4hrs while awake. Discussed wound care, dressing care, and hip precautions. Follow-up is scheduled in 2-3 weeks. Discharge instructions given by orthopedic providers and nursing staff at discharge. Discharge condition was good. Care extended to > 2 midnight stays?: Yes Comments: Dizziness and drop in Hbg to 8.4 Discharge Plan - Med Rec/Dispo Referrals/Follow Up: Arsalan Culver MD [Physician] - 02/11/18 2:45 pm [place] Instructions: [facility] [place] [facility] [place]op Instructions Prescriptions: New Docusate Sodium [Colace] 100 mg PO BID capsule Enoxaparin Sodium [Lovenox] 40 mg SQ DAILY #5 syringe PEG 3350 17gm PACKET [Miralax] 17 gm PO DAILY packet Warfarin [Coumadin] 5 mg PO 1700 #30 tab Acetaminophen [Tylenol] 650 mg PO QID tablet Oxycodone *IR* [Roxicodone *Ir*] 5 - 15 mg PO Q3H PRN #50 tab PRN Reason: Breakthrough Pain Continue Glucosa Sapp 2Kcl/Chondroitin Sapp [Glucosamine Chondroitin Caplet] 1 tab PO HS Mometasone 0.1% Cream [Elocon 0.1% Cream] 1 applicatio TP BID Albuterol HFA Inhaler [Ventolin Hfa 90 mcg/actuation] 1 - 2 puff ORAL INH Q3- 4HR PRN PRN Reason: Wheezing Potassium Chloride [Klor-Con M20] 40 meq PO DAILY HydrOXYzine [Atarax] 25 mg PO BID PRN PRN Reason: Itching Cyclobenzaprine HCl 1 tab PO PRN PRN PRN Reason: Muscle Spasm Omeprazole [Prilosec] 20 mg PO ACB Lisinopril [Prinivil] 20 mg PO HS Amlodipine [Norvasc] 5 mg PO HS Ergocalciferol (Vitamin D2) [Vitamin D2] 50,000 unit PO O fexofenadine 60 mg tablet 60 mg PO DAILY tab albuterol sulfate 1.25 mg/3 mL solution for nebulization 1.25 mg INH DAILY ml iron polysacch cplx 150 mg iron-vit B12 25 mcg-folic acid 1 mg capsule 1 cap PO DAILY cap Discontinued Hydrocodone/APAP 7.5/325 [[place] 7.5/325] 1 - 2 tab PO PRN PRN PRN Reason: Pain - Disposition 01 Discharged Home, Self-Care - Dismissal Complete Discharge Instructions are:: Complete
[2018-01-22] MEDS ORDERED: BISACODYL 10 MG SUPPOSITORY RECTALLY SCH (20:00)
== END 2018-01-22 15:55 | disposition home health service (06) | DRG 470 ==
LOC: NMC.PERIOP 05:31 → SRG 10:20
PROVIDERS: ADMIT Orthopaedic Surgery; ATTEND Orthopaedic Surgery